=== PATIENT | male | born 1985 | race Caucasian/White ===

== ENCOUNTER 2016-07-05 10:11 | Inpatient (IN) | payer OTHER ==
[2016-07-05 12:06] VITALS: BMI 29.0
--- NOTE | 2016-07-05 12:22 | HP ---
COWS - Scale Resting Pulse: 0= [place] 80 or Below Sweatin=Flushed/Facial Moisture Restless Observation: 1= Difficult to Sit Still Pupil Size: 0= Normal to Room Light Bone or Joint Aches: 4=Acute Joint/Muscle Pain Runny Nose/ Eye Tearin= Runny Nose/Eyes GI Upset > 30mins: 0= None Tremor Observation: 2= Slight Tremor Visible Yawning Observation: 2= >3x During Session Anxiety or Irritability: 2=Irritable/Anxious Goose Flesh Skin: 3=Piloerection COWS Score: 18 CIWA Score - CIWA Score Nausea/Vomitin-No Nausea/No Vomiting Muscle Tremors: 4-Moderate,w/Arms Extend Anxiety: 4-Mod. Anxious/Guarded Agitation: 4-Moderately Restless Paroxysmal Sweats: 3 Orientation: 0-Oriented Tacttile Disturbances: 0-None Auditory Disturbances: 0-None Visual Disturbances: 0-None Headache: 0-None Present CIWA-Ar Total Score: 15 Admission ROS BHS - HPI Chief Complaint: I am here to detox. Allergies/Adverse Reactions: Allergies Allergy/AdvReac Type Severity Reaction Status Date / Time No Known Allergies Allergy Verified 07/05/16 11:49 History of Present Illness: pt is a 30yr old male with a history of opioid and xanax dependence seeking detox for treatment. Exam Limitations: No Limitations - Ebola screening Have you traveled outside of the country in the last 21 days: No Have you had contact with anyone from an Ebola affected area: No Have you been sick,other than usual withdrawal symptoms: No - Review of Systems Constitutional: Chills, Diaphoresis, Loss of Appetite, Night Sweats, Unintentional Wgt. Loss EENT: reports: Tearing Respiratory: reports: No Symptoms reported Cardiac: reports: No Symptoms Reported GI: reports: Poor Appetite, Poor Fluid Intake : reports: No Symptoms Reported Musculoskeletal: reports: Back Pain, Joint Pain, Muscle Pain Integumentary: reports: Flushing, Sweating Neuro: reports: Tingling, Tremors Endocrine: reports: Excessive Sweating, Flushing, Intolerance to Cold, Intolerance to Heat Hematology: reports: No Symptoms Reported Psychiatric: reports: Judgement Intact, Mood/Affect Appropiate, Orientated x3, Agitated, Anxious Other Systems: Reviewed and Negative Patient History - Patient Medical History Hx Anemia: No Hx Asthma: No Hx Chronic Obstructive Pulmonary Disease (COPD): No Hx Cancer: No Hx Cardiac Disorders: No Hx Congestive Heart Failure: No Hx Hypertension: No Hx Hypercholesterolemia: No Hx Pacemaker: No HX Cerebrovascular Accident: No Hx Seizures: No Hx Dementia: No Hx Diabetes: No Hx Gastrointestinal Disorders: No Hx Liver Disease: No Hx Genitourinary Disorders: No Hx Sexually Transmitted Disorders: No Hx Renal Disease (ESRD): No Hx Thyroid Disease: No Hx Human Immunodeficiency Virus (HIV): No (negative) Hx Hepatitis C: No (negative) Hx Depression: No Hx Suicide Attempt: No Hx Bipolar Disorder: No Hx Schizophrenia: No - Patient Surgical History Past Surgical History: Yes Hx Neurologic Surgery: No Hx Cataract Extraction: No Hx Cardiac Surgery: No Hx Lung Surgery: No Hx Breast Surgery: No Hx Breast Biopsy: No Hx Abdominal Surgery: No Hx Appendectomy: No Hx Cholecystectomy: No Hx Genitourinary Surgery: No Hx Orthopedic Surgery: Yes (LUMBAR SPINE SURGERY 06/2015 RELATED TO FALL) Anesthesia Reaction: No - PPD History Previous Implant?: Yes Documented Results: Negative w/proof Implanted On Prior R Admission?: Yes Date: 12/07/15 Results: 0 mm PPD to be Administered?: No - Reproductive History Patient is a Female of Child Bearing Age (11 -55 yrs old): No - Smoking Cessation Smoking history: Current some day smoker Have you smoked in the past 12 months: Yes Aproximately how many cigarettes per day: 4 Hx Chewing Tobacco Use: No Initiated information on smoking cessation: Yes 'Breaking Loose' booklet given: 07/05/16 - Substance & Tx. History Hx Alcohol Use: No Hx Substance Use: Yes Substance Use Type: Heroin, Tranquilizers Hx Substance Use Treatment: Yes - Substances Abused Heroin Route: Injection Frequency: Daily Amount used: 8 bags Age of first use: 29 Date of Last Use: 07/05/16 Xanax Route: Oral Frequency: Daily Amount used: 8 mg. Age of first use: 28 Date of Last Use: 07/05/16 Family Disease History - Family Disease History Family History: Denies Admission Physical Exam BHS - Vital Signs Vital Signs: Vital Signs - 24 hr 07/05/16 11:51 Temperature 97.1 F L Pulse Rate 69 Respiratory 20 Rate Blood Pressure 122/69 - Physical General Appearance: Yes: Appropriately Dressed, Moderate Distress, Irritable, Sweating, Anxious HEENTM: Yes: Normal Voice Respiratory: Yes: Lungs Clear, Normal Breath Sounds, No Respiratory Distress Neck: Yes: No masses,lesions,Nodules Breast: Yes: Within Normal Limits Cardiology: Yes: Regular Rhythm, Regular Rate, S1, S2 Abdominal: Yes: Normal Bowel Sounds, Non Tender, Soft Genitourinary: Yes: Within Normal Limits Back: Yes: Normal Inspection Musculoskeletal: Yes: full range of Motion, Back pain, Joint Stiffness Extremities: Yes: Normal Capillary Refill, Non-Tender, Tremors Neurological: Yes: Fully Oriented, Alert, Normal Response Integumentary: Yes: Normal Color, Diaphoresis, Track [place]hu[place] Lymphatic: Yes: Within Normal Limits - Diagnostic (1) Lumbago due to displacement of intervertebral disc Current Visit: Yes Status: Chronic (2) Nicotine dependence Current Visit: Yes Status: Chronic Qualifiers: Nicotine product type: cigarettes Substance use status: uncomplicated Qualified Code(s): F17.210 - Nicotine dependence, cigarettes, uncomplicated (3) Opioid dependence with withdrawal Current Visit: Yes Status: Chronic (4) Sedative, hypnotic or anxiolytic dependence with withdrawal, uncomplicated Current Visit: Yes Status: Chronic Cleared for Admission [facility] - Detox or Rehab [facility] Level of Care: Medically Managed Detox Regimen/Protocol: Methadone/Valium [facility] Breath Alcohol Content Breath Alcohol Content: 0 Urine Drug Screen - Results Drug Screen Negative: No Urine Drug Screen Results: OPI-Opiates, BZO-Benzodiazepines, OXY-Oxycodone
[2016-07-05] MEDS ORDERED: P-EPHED 60MG/TRIPROLIDI 2.5MG TABLET PO PRN (12:23)
[2016-07-05] MEDS ORDERED: diphenhydrAMINE HCL 50 MG CAPSULE PO PRN (12:23)
[2016-07-05] MEDS ORDERED: MENTHOL/PHENOL 1 EACH UD MM PRN (12:23)
[2016-07-05] MEDS ORDERED: guaiFENesin/D-METHORPHAN HB 10 ML UNIT-DOSE CUPS PO PRN (12:23)
[2016-07-05] MEDS ORDERED: MAGNESIUM HYDROX 2400MG/30ML ORAL SUSPENSION 30 ML CUP PO PRN (12:23)
[2016-07-05] MEDS ORDERED: MAG HYDROX/AL HYDROX/SIMETH 30 ML UNIT-DOSE CUP PO PRN (12:23)
[2016-07-05] MEDS ORDERED: ACETAMINOPHEN 325 MG TABLET (FP) PO PRN (12:23)
[2016-07-05] MEDS ORDERED: hydrOXYzine PAMOATE 50 MG CAPSULE (FP) PO PRN (12:23)
[2016-07-05] MEDS ORDERED: MAGNESIUM CITRATE 300 ML BOTTLE PO PRN (12:23)
[2016-07-05] MEDS ORDERED: LOPERAMIDE HCL 2 MG CAPSULE PO PRN (12:23)
[2016-07-05] MEDS ORDERED: diazePAM 5 MG TABLET PO ONE (13:02)
[2016-07-05] MEDS ORDERED: METHADONE HCL 10 MG TABLET (FOR DETOX USE ONLY) PO ONE ×2 (13:03→23:00)
[2016-07-05] MEDS: diazePAM 5 MG TABLET PO SCH ×2 (13:59→22:17)
[2016-07-05 17:58] LABS: URINE APPEARANCE CLEAR; URINE BILIRUBIN NEGATIVE (NEGATIVE); URINE BLOOD NEGATIVE (NEGATIVE); URINE COLOR LTYELLOW; URINE GLUCOSE (UA) NEGATIVE (NEGATIVE); URINE KETONE NEGATIVE (NEGATIVE); URINE LEUK ESTERASE NEGATIVE (NEGATIVE); URINE NITRITE NEGATIVE (NEGATIVE); URINE PROTEIN NEGATIVE (NEGATIVE); URINE UROBILINOGEN NEGATIVE E.U./dl (0.2-1.0)
[2016-07-05] MEDS: VITAMINS A AND D TOPICAL OINTMENT 60 GM TUBE TP SCH (18:00)
[2016-07-05] MEDS: diazePAM 5 MG TABLET PO PRN (18:45)
[2016-07-05] MEDS: THIAMINE HCL 100 MG TABLET (FP) PO SCH (22:17)
[2016-07-06] MEDS: VITAMINS A AND D TOPICAL OINTMENT 60 GM TUBE TP SCH ×4 (01:11→18:00)
[2016-07-06] MEDS: diazePAM 5 MG TABLET PO PRN ×4 (02:16→18:49)
[2016-07-06] MEDS: diazePAM 5 MG TABLET PO SCH ×3 (07:39→22:24)
--- NOTE | 2016-07-06 08:26 | EKG ---
Test Reason : Blood Pressure : / mmHG Vent. Rate : 074 BPM Atrial Rate : 074 BPM P-R Int : 144 ms QRS Dur : 100 ms QT Int : 378 ms P-R-T Axes : 034 085 045 degrees QTc Int : 419 ms NORMAL SINUS RHYTHM NORMAL ECG NO PREVIOUS ECGS AVAILABLE Confirmed by TERRI MCCALL MD ([id number]) on 07/06/2016 8:25:46 AM Referred By: Confirmed By:TERRI MCCALL MD
[2016-07-06] MEDS ORDERED: METHADONE HCL 10 MG TABLET (FOR DETOX USE ONLY) PO SCH (10:00)
[2016-07-06] MEDS: PRENATAL VITAMINS W/ FOLIC ACID TABLET (FP) PO SCH (10:13)
[2016-07-06 10:31] LABS: ALBUMIN 4.1 g/dl (3.4-5.0); ALK PHOS 130 U/L (45-117); ANION GAP 8 (8-16); BILIRUBIN,TOTAL 0.4 mg/dL (0.2-1.0); CALCIUM 9.3 mg/dL (8.5-10.1); CO2 28 mmol/L (21-32); COCKROFT - GAULT 155.92; CREATININE 0.8 mg/dL (0.7-1.3); GLUCOSE,RANDOM 163 mg/dL (74-106); SGOT/AST 31 U/L (15-37); SGPT/ALT 49 U/L (12-78); TOT PROT 7.5 g/dl (6.4-8.2)
[2016-07-06 10:57] LABS: MCH 27.4 pg (25.7-33.7); MCHC 32.7 g/dl (32.0-35.9); MEAN CELL VOLUME 83.7 fl (80-96); MEAN PLT VOLUME 10.3 fl (7.5-11.1); PLATELET COUNT 232 K/MM3 (134-434); RDW 14.6 % (11.9-15.9); WHITE BLOOD COUNT 6.9 K/mm3 (4.0-10.0)
--- NOTE | 2016-07-06 11:04 | PN ---
[facility] CIWA - CIWA Score Nausea/Vomitin-No Nausea/No Vomiting Muscle Tremors: 4-Moderate,w/Arms Extend Anxiety: 4-Mod. Anxious/Guarded Agitation: 4-Moderately Restless Paroxysmal Sweats: 1-Minimal Palms Moist Orientation: 0-Oriented Tacttile Disturbances: 3-Moderate Itch/Numb/Burn Auditory Disturbances: 0-None Visual Disturbances: 0-None Headache: 0-None Present CIWA-Ar Total Score: 16 BHS COWS - Scale Resting Pulse: 1= [place] 81-100 Sweatin= Chills/Flushing Restless Observation: 3= Extraneous Movement Pupil Size: 2= Moderately Dilated Bone or Joint Aches: 4=Acute Joint/Muscle Pain Runny Nose/ Eye Tearin= Nasal Congestion GI Upset > 30mins: 1= Stomach Cramp Tremor Observation of Outstretched Hands: 1= Tremor [place], Not Seen Yawning Observation: 1= 1-2x During Session Anxiety or Irritability: 2=Irritable/Anxious Goose Flesh Skin: 0=Smooth Skin COWS Score: 17 [facility] Progress Note (SOAP) Subjective: ANXIETY,TREMORS, SWEATS, MUSCLE SPASMS, INTERMITTENT SLEEP. Objective: 07/06/16 11:03 Vital Signs Temperature 96.9 F L 07/06/16 10:02 Pulse Rate 84 07/06/16 10:02 Respiratory Rate 18 07/06/16 10:02 Blood Pressure 121/20 07/06/16 10:02 O2 Sat by Pulse Oximetry (%) Laboratory Last Values Sodium 138 mmol/L (136-145) 07/06/16 06:00 Potassium 4.9 mmol/L (3.5-5.1) 07/06/16 06:00 Chloride 102 mmol/L (98-107) 07/06/16 06:00 Carbon Dioxide 28 mmol/L (21-32) 07/06/16 06:00 Anion Gap 8 (8-16) 07/06/16 06:00 BUN 14 mg/dL (7-18) 07/06/16 06:00 Creatinine 0.8 mg/dL (0.7-1.3) 07/06/16 06:00 Creat Clearance w eGFR > 60 (>60) 07/06/16 06:00 Random Glucose 163 mg/dL (74-106) H D 07/06/16 06:00 Calcium 9.3 mg/dL (8.5-10.1) 07/06/16 06:00 Total Bilirubin 0.4 mg/dL (0.2-1.0) D 07/06/16 06:00 AST 31 U/L (15-37) D 07/06/16 06:00 ALT 49 U/L (12-78) D 07/06/16 06:00 Alkaline Phosphatase 130 U/L (45-117) H 07/06/16 06:00 Total Protein 7.5 g/dl (6.4-8.2) 07/06/16 06:00 Albumin 4.1 g/dl (3.4-5.0) 07/06/16 06:00 Urine Color Ltyellow 07/05/16 13:00 Urine Appearance Clear 07/05/16 13:00 Urine pH 6.0 (5.0-8.0) 07/05/16 13:00 Ur Specific [place] 1.023 (1.001-1.035) 07/05/16 13:00 Urine Protein Negative (NEGATIVE) 07/05/16 13:00 Urine Glucose (UA) Negative (NEGATIVE) 07/05/16 13:00 Urine Ketones Negative (NEGATIVE) 07/05/16 13:00 Urine Blood Negative (NEGATIVE) 07/05/16 13:00 Urine Nitrite Negative (NEGATIVE) 07/05/16 13:00 Urine Bilirubin Negative (NEGATIVE) 07/05/16 13:00 Urine Urobilinogen Negative E.U./dl (0.2-1.0) 07/05/16 13:00 Ur Leukocyte Esterase Negative (NEGATIVE) 07/05/16 13:00 Assessment: 07/06/16 11:03 WITHDRAWAL SX Plan: CONTINUE DETOX
[2016-07-06] MEDS: IBUPROFEN 400 MG TABLET (FP) PO PRN ×2 (13:05→20:20)
[2016-07-06] MEDS ORDERED: ONDANSETRON *ODT* 4 MG TABLET SL PRN (13:08)
[2016-07-06] MEDS ORDERED: hydrOXYzine PAMOATE 50 MG CAPSULE (FP) PO PRN (13:09)
[2016-07-06] MEDS: CYCLOBENZAPRINE HCL 10 MG TABLET (FP) PO SCH ×2 (14:14→22:24)
[2016-07-06] MEDS: THIAMINE HCL 100 MG TABLET (FP) PO SCH (22:24)
[2016-07-06] MEDS: hydrOXYzine PAMOATE 50 MG CAPSULE (FP) PO PRN (22:26)
[2016-07-07] MEDS: VITAMINS A AND D TOPICAL OINTMENT 60 GM TUBE TP SCH ×4 (00:25→17:52)
[2016-07-07] MEDS: diazePAM 5 MG TABLET PO PRN ×3 (00:32→18:35)
[2016-07-07] MEDS: CYCLOBENZAPRINE HCL 10 MG TABLET (FP) PO SCH ×3 (05:59→22:36)
[2016-07-07] MEDS: diazePAM 5 MG TABLET PO SCH ×2 (10:19→22:35)
[2016-07-07] MEDS: PRENATAL VITAMINS W/ FOLIC ACID TABLET (FP) PO SCH (10:19)
[2016-07-07] MEDS: METHADONE HCL 5 MG TABLET (FOR DETOX USE ONLY) PO SCH (10:19)
[2016-07-07] MEDS: IBUPROFEN 400 MG TABLET (FP) PO PRN (10:20)
--- NOTE | 2016-07-07 11:17 | CONSULT ---
[facility] Psychiatric Consult - Data Date of interview: 07/07/16 Admission source: [facility] Identifying data: This is 30 years old male with no psychiatric hospitalization history intoxicated with: Xanax, Opioids and Nicotine Substance Abuse History: - Smoking Cessation. Smoking history: Current some day smoker. Have you smoked in the past 12 months: Yes. Aproximately how many cigarettes per day: 4. Hx Chewing Tobacco Use: No. Initiated information on smoking cessation: Yes. 'Breaking Loose' booklet given: 07/05/16. - Substance & Tx. History. Hx Alcohol Use: No. Hx Substance Use: Yes. Substance Use Type : Heroin, Tranquilizers. Hx Substance Use Treatment: Yes. - Substances Abused. Heroin. Route: Injection. Frequency: Daily. Amount used: 8 bags. Age of first use: 29. Date of Last Use: 07/05/16. Xanax. Route: Oral. Frequency: Daily. Amount used: 8 mg. Age of first use: 28. Date of Last Use: 07/05/16 Medical History: Denies Psychiatric History: Patient denies past psychiatric history, reports insomnia and asking for medications Physical/Sexual Abuse/Trauma History: Denies Additional Comment: Seroquel 100mg po qhs Mental Status Exam - Mental Status Exam Alert and Oriented to: Person Cognitive Function: Fair Patient Appearance: Unkempt Mood: Anxious Affect: Labile Patient Behavior: Cooperative Speech Pattern: Appropriate Voice Loudness: Normal Thought Process: Goal Oriented Thought Disorder: Being Controlled Hallucinations: Denies Suicidal Ideation: Denies Homicidal Ideation: Denies Insight/Judgement: Fair Sleep: Difficulty falling asleep Appetite: Weight loss Muscle strength/Tone: Normal Gait/Station: Normal Additional Comments: Seroquel 100mg po qhs Psychiatric Findings - Problem List ([place] 1, 2,3) (1) Nicotine dependence Current Visit: Yes Status: Chronic Qualifiers: Nicotine product type: cigarettes Substance use status: uncomplicated Qualified Code(s): F17.210 - Nicotine dependence, cigarettes, uncomplicated (2) Opioid dependence with withdrawal Current Visit: Yes Status: Chronic (3) Sedative, hypnotic or anxiolytic dependence with withdrawal, uncomplicated Current Visit: Yes Status: Chronic (4) Opioid-induced sleep disorder, insomnia type, with onset during discontinuation/withdrawal Current Visit: Yes Status: Acute - Initial Treatment Plan Initial Treatment Plan: Seroquel 100mg po qhs
--- NOTE | 2016-07-07 12:08 | PN ---
S CIWA - CIWA Score Nausea/Vomitin-No Nausea/No Vomiting Muscle Tremors: 4-Moderate,w/Arms Extend Anxiety: 4-Mod. Anxious/Guarded Agitation: 3 Paroxysmal Sweats: 1-Minimal Palms Moist Orientation: 0-Oriented Tacttile Disturbances: 3-Moderate Itch/Numb/Burn Auditory Disturbances: 0-None Visual Disturbances: 0-None Headache: 0-None Present CIWA-Ar Total Score: 15 BHS COWS - Scale Resting Pulse: 0= [place] 80 or Below Sweatin= Chills/Flushing Restless Observation: 3= Extraneous Movement Pupil Size: 2= Moderately Dilated Bone or Joint Aches: 4=Acute Joint/Muscle Pain Runny Nose/ Eye Tearin= Nasal Congestion GI Upset > 30mins: 1= Stomach Cramp Tremor Observation of Outstretched Hands: 1= Tremor [place], Not Seen Yawning Observation: 1= 1-2x During Session Anxiety or Irritability: 2=Irritable/Anxious Goose Flesh Skin: 0=Smooth Skin COWS Score: 16 S Progress Note (SOAP) Subjective: ANXIETY,SWEATS,DECREASED NAUSEA., INTERMITTENT SLEEP. [place] NOT EFFECTIVE. Objective: 07/07/16 12:08 Vital Signs Temperature 96.9 F L 07/07/16 09:23 Pulse Rate 77 07/07/16 09:23 Respiratory Rate 18 07/07/16 09:23 Blood Pressure 105/74 07/07/16 09:23 O2 Sat by Pulse Oximetry (%) Laboratory Last Values WBC 6.9 K/mm3 (4.0-10.0) 07/06/16 06:00 RBC 4.98 M/mm3 (4.00-5.60) 07/06/16 06:00 Hgb 13.6 GM/dL (11.7-16.9) 07/06/16 06:00 Hct 41.7 % (35.4-49) 07/06/16 06:00 MCV 83.7 fl (80-96) 07/06/16 06:00 MCHC 32.7 g/dl (32.0-35.9) 07/06/16 06:00 RDW 14.6 % (11.9-15.9) 07/06/16 06:00 Plt Count 232 K/MM3 (134-434) 07/06/16 06:00 MPV 10.3 fl (7.5-11.1) D 07/06/16 06:00 Sodium 138 mmol/L (136-145) 07/06/16 06:00 Potassium 4.9 mmol/L (3.5-5.1) 07/06/16 06:00 Chloride 102 mmol/L (98-107) 07/06/16 06:00 Carbon Dioxide 28 mmol/L (21-32) 07/06/16 06:00 Anion Gap 8 (8-16) 07/06/16 06:00 BUN 14 mg/dL (7-18) 07/06/16 06:00 Creatinine 0.8 mg/dL (0.7-1.3) 07/06/16 06:00 Creat Clearance w eGFR > 60 (>60) 07/06/16 06:00 Random Glucose 163 mg/dL (74-106) H D 07/06/16 06:00 Calcium 9.3 mg/dL (8.5-10.1) 07/06/16 06:00 Total Bilirubin 0.4 mg/dL (0.2-1.0) D 07/06/16 06:00 AST 31 U/L (15-37) D 07/06/16 06:00 ALT 49 U/L (12-78) D 07/06/16 06:00 Alkaline Phosphatase 130 U/L (45-117) H 07/06/16 06:00 Total Protein 7.5 g/dl (6.4-8.2) 07/06/16 06:00 Albumin 4.1 g/dl (3.4-5.0) 07/06/16 06:00 Urine Color Ltyellow 07/05/16 13:00 Urine Appearance Clear 07/05/16 13:00 Urine pH 6.0 (5.0-8.0) 07/05/16 13:00 Ur Specific [place] 1.023 (1.001-1.035) 07/05/16 13:00 Urine Protein Negative (NEGATIVE) 07/05/16 13:00 Urine Glucose (UA) Negative (NEGATIVE) 07/05/16 13:00 Urine Ketones Negative (NEGATIVE) 07/05/16 13:00 Urine Blood Negative (NEGATIVE) 07/05/16 13:00 Urine Nitrite Negative (NEGATIVE) 07/05/16 13:00 Urine Bilirubin Negative (NEGATIVE) 07/05/16 13:00 Urine Urobilinogen Negative E.U./dl (0.2-1.0) 07/05/16 13:00 Ur Leukocyte Esterase Negative (NEGATIVE) 07/05/16 13:00 RPR Titer Nonreactive (NONREACTIVE) 07/06/16 06:00 ELEVATED BLOOD GLUCOSE AND ALKALINE PHOS DENIES ALL PMHx PT HX CHRONIC USER OF PAIN MEDICATIONS PER MED RECORDS. Assessment: 07/07/16 12:10 WITHDRAWAL SX Plan: CONTINUE DETOX REPEAT ALK PHOS BGM MONITORING X3 DAYS
[2016-07-07] MEDS: THIAMINE HCL 100 MG TABLET (FP) PO SCH (22:35)
[2016-07-07] MEDS: QUEtiapine FUMARATE 100 MG TABLET (FP) PO SCH (22:36)
[2016-07-07] MEDS: hydrOXYzine PAMOATE 50 MG CAPSULE (FP) PO PRN (22:37)
[2016-07-08] MEDS: IBUPROFEN 400 MG TABLET (FP) PO PRN (00:03)
[2016-07-08] MEDS: diazePAM 5 MG TABLET PO PRN ×2 (01:35→05:10)
[2016-07-08] MEDS: VITAMINS A AND D TOPICAL OINTMENT 60 GM TUBE TP SCH ×5 (03:55→23:13)
[2016-07-08] MEDS: CYCLOBENZAPRINE HCL 10 MG TABLET (FP) PO SCH ×3 (05:10→22:14)
[2016-07-08] MEDS: METHADONE HCL 5 MG TABLET (FOR DETOX USE ONLY) PO SCH (10:40)
[2016-07-08] MEDS: PRENATAL VITAMINS W/ FOLIC ACID TABLET (FP) PO SCH (10:40)
[2016-07-08] MEDS: diazePAM 5 MG TABLET PO SCH ×2 (10:40→22:14)
--- NOTE | 2016-07-08 12:38 | PN ---
BHS Progress Note (SOAP) Subjective: Sweating,interrupted sleep,restless Objective: 07/08/16 12:37 Vital Signs - 8 hr 07/08/16 07/08/16 07/08/16 06:30 06:38 09:28 Temperature 96.8 F L 96.2 F L Pulse Rate 64 77 Respiratory 18 16 18 Rate Blood Pressure 100/67 106/68 Laboratory Tests 07/05/16 07/06/16 07/06/16 13:00 06:00 06:00 WBC 6.9 RBC 4.98 Hgb 13.6 Hct 41.7 MCV 83.7 MCHC 32.7 RDW 14.6 Plt Count 232 MPV 10.3 D Sodium 138 Potassium 4.9 Chloride 102 Carbon Dioxide 28 Anion Gap 8 BUN 14 Creatinine 0.8 Creat Clearance w eGFR > 60 POC Glucometer Random Glucose 163 H D Calcium 9.3 Total Bilirubin 0.4 D AST 31 D ALT 49 D Alkaline Phosphatase 130 H Total Protein 7.5 Albumin 4.1 Urine Color Ltyellow Urine Appearance Clear Urine pH 6.0 Ur Specific [place] 1.023 Urine Protein Negative Urine Glucose (UA) Negative Urine Ketones Negative Urine Blood Negative Urine Nitrite Negative Urine Bilirubin Negative Urine Urobilinogen Negative Ur Leukocyte Esterase Negative RPR Titer 07/06/16 07/07/16 07/08/16 06:00 07:00 05:57 WBC RBC Hgb Hct MCV MCHC RDW Plt Count MPV Sodium Potassium Chloride Carbon Dioxide Anion Gap BUN Creatinine Creat Clearance w eGFR POC Glucometer 87 Random Glucose Calcium Total Bilirubin AST ALT Alkaline Phosphatase 118 H Total Protein Albumin Urine Color Urine Appearance Urine pH Ur Specific [place] Urine Protein Urine Glucose (UA) Urine Ketones Urine Blood Urine Nitrite Urine Bilirubin Urine Urobilinogen Ur Leukocyte Esterase RPR Titer Nonreactive labs noted Assessment: 07/08/16 12:38 Withdrawal sx. Plan: Continue detox
[2016-07-08] MEDS: QUEtiapine FUMARATE 100 MG TABLET (FP) PO SCH (22:14)
[2016-07-08] MEDS: THIAMINE HCL 100 MG TABLET (FP) PO SCH (22:14)
[2016-07-09] MEDS: CYCLOBENZAPRINE HCL 10 MG TABLET (FP) PO SCH ×3 (05:12→22:17)
[2016-07-09] MEDS: VITAMINS A AND D TOPICAL OINTMENT 60 GM TUBE TP SCH ×4 (05:13→23:53)
[2016-07-09] MEDS ORDERED: diazePAM 5 MG TABLET PO SCH (10:00)
[2016-07-09] MEDS ORDERED: METHADONE HCL 10 MG TABLET (FOR DETOX USE ONLY) PO SCH (10:00)
[2016-07-09] MEDS: PRENATAL VITAMINS W/ FOLIC ACID TABLET (FP) PO SCH (10:22)
--- NOTE | 2016-07-09 15:49 | PN ---
BHS Progress Note (SOAP) Subjective: Interrupted sleep, Body Aches, H/A, Stomach Ache, Sweating. Objective: PT. A & O X 3. 07/09/16 15:47 Vital Signs Temperature 96.4 F L 07/09/16 13:45 Pulse Rate 80 07/09/16 13:45 Respiratory Rate 20 07/09/16 13:45 Blood Pressure 104/69 07/09/16 13:45 O2 Sat by Pulse Oximetry (%) Laboratory Last Values WBC 6.9 K/mm3 (4.0-10.0) 07/06/16 06:00 RBC 4.98 M/mm3 (4.00-5.60) 07/06/16 06:00 Hgb 13.6 GM/dL (11.7-16.9) 07/06/16 06:00 Hct 41.7 % (35.4-49) 07/06/16 06:00 MCV 83.7 fl (80-96) 07/06/16 06:00 MCHC 32.7 g/dl (32.0-35.9) 07/06/16 06:00 RDW 14.6 % (11.9-15.9) 07/06/16 06:00 Plt Count 232 K/MM3 (134-434) 07/06/16 06:00 MPV 10.3 fl (7.5-11.1) D 07/06/16 06:00 Sodium 138 mmol/L (136-145) 07/06/16 06:00 Potassium 4.9 mmol/L (3.5-5.1) 07/06/16 06:00 Chloride 102 mmol/L (98-107) 07/06/16 06:00 Carbon Dioxide 28 mmol/L (21-32) 07/06/16 06:00 Anion Gap 8 (8-16) 07/06/16 06:00 BUN 14 mg/dL (7-18) 07/06/16 06:00 Creatinine 0.8 mg/dL (0.7-1.3) 07/06/16 06:00 Creat Clearance w eGFR > 60 (>60) 07/06/16 06:00 POC Glucometer 89 UNITS (()) 07/09/16 05:15 Random Glucose 163 mg/dL (74-106) H D 07/06/16 06:00 Calcium 9.3 mg/dL (8.5-10.1) 07/06/16 06:00 Total Bilirubin 0.4 mg/dL (0.2-1.0) D 07/06/16 06:00 AST 31 U/L (15-37) D 07/06/16 06:00 ALT 49 U/L (12-78) D 07/06/16 06:00 Alkaline Phosphatase 118 U/L (45-117) H 07/07/16 07:00 Total Protein 7.5 g/dl (6.4-8.2) 07/06/16 06:00 Albumin 4.1 g/dl (3.4-5.0) 07/06/16 06:00 Urine Color Ltyellow 07/05/16 13:00 Urine Appearance Clear 07/05/16 13:00 Urine pH 6.0 (5.0-8.0) 07/05/16 13:00 Ur Specific [place] 1.023 (1.001-1.035) 07/05/16 13:00 Urine Protein Negative (NEGATIVE) 07/05/16 13:00 Urine Glucose (UA) Negative (NEGATIVE) 07/05/16 13:00 Urine Ketones Negative (NEGATIVE) 07/05/16 13:00 Urine Blood Negative (NEGATIVE) 07/05/16 13:00 Urine Nitrite Negative (NEGATIVE) 07/05/16 13:00 Urine Bilirubin Negative (NEGATIVE) 07/05/16 13:00 Urine Urobilinogen Negative E.U./dl (0.2-1.0) 07/05/16 13:00 Ur Leukocyte Esterase Negative (NEGATIVE) 07/05/16 13:00 RPR Titer Nonreactive (NONREACTIVE) 07/06/16 06:00 LABS NOTED. 07/09/16 15:48 Assessment: 07/09/16 15:48 WITHDRAWAL SYMPTOMS. Plan: CONTINUE DETOX. ADVISED PATIENT TO FOLLOW-UP WITH [facility] REHAB MEDICAL PROVIDER AFTER DISCHARGE FROM DETOX FOR GENERAL MEDICAL ASSESSMENT AND FOR ABNORMAL ADMISSION LAB VALUES.
[2016-07-09] MEDS: IBUPROFEN 400 MG TABLET (FP) PO PRN (17:17)
[2016-07-09] MEDS: THIAMINE HCL 100 MG TABLET (FP) PO SCH (22:17)
[2016-07-09] MEDS: QUEtiapine FUMARATE 100 MG TABLET (FP) PO SCH (22:17)
[2016-07-09] MEDS: hydrOXYzine PAMOATE 50 MG CAPSULE (FP) PO PRN (23:55)
[2016-07-10] MEDS: CYCLOBENZAPRINE HCL 10 MG TABLET (FP) PO SCH (05:18)
[2016-07-10] MEDS ORDERED: METHADONE HCL 5 MG TABLET (FOR DETOX USE ONLY) PO SCH (06:00)
[2016-07-10] MEDS: VITAMINS A AND D TOPICAL OINTMENT 60 GM TUBE TP SCH (06:04)
[2016-07-10 10:06] VITALS: BP 116/72; PULSE 75; TEMP 95.9
--- NOTE | 2016-07-10 12:04 | DS ---
[facility] Detox Discharge Summary Admission Date: 07/05/16 Discharge Date: 07/10/16 - History Present History: Opioid Dependence, Sedative Dependence - Physical Exam Results Vital Signs: Vital Signs Temperature 95.9 F L 07/10/16 10:05 Pulse Rate 75 07/10/16 10:05 Respiratory Rate 18 07/10/16 10:05 Blood Pressure 116/72 07/10/16 10:05 O2 Sat by Pulse Oximetry (%) Pertinent Admission Physical Exam Findings: Withdrawal symptoms Laboratory Tests 07/05/16 07/06/16 07/06/16 13:00 06:00 06:00 WBC 6.9 RBC 4.98 Hgb 13.6 Hct 41.7 MCV 83.7 MCHC 32.7 RDW 14.6 Plt Count 232 MPV 10.3 D Sodium 138 Potassium 4.9 Chloride 102 Carbon Dioxide 28 Anion Gap 8 BUN 14 Creatinine 0.8 Creat Clearance w eGFR > 60 POC Glucometer Random Glucose 163 H D Calcium 9.3 Total Bilirubin 0.4 D AST 31 D ALT 49 D Alkaline Phosphatase 130 H Total Protein 7.5 Albumin 4.1 Urine Color Ltyellow Urine Appearance Clear Urine pH 6.0 Ur Specific [place] 1.023 Urine Protein Negative Urine Glucose (UA) Negative Urine Ketones Negative Urine Blood Negative Urine Nitrite Negative Urine Bilirubin Negative Urine Urobilinogen Negative Ur Leukocyte Esterase Negative RPR Titer 07/06/16 07/07/16 07/08/16 06:00 07:00 05:57 WBC RBC Hgb Hct MCV MCHC RDW Plt Count MPV Sodium Potassium Chloride Carbon Dioxide Anion Gap BUN Creatinine Creat Clearance w eGFR POC Glucometer 87 Random Glucose Calcium Total Bilirubin AST ALT Alkaline Phosphatase 118 H Total Protein Albumin Urine Color Urine Appearance Urine pH Ur Specific [place] Urine Protein Urine Glucose (UA) Urine Ketones Urine Blood Urine Nitrite Urine Bilirubin Urine Urobilinogen Ur Leukocyte Esterase RPR Titer Nonreactive 07/09/16 05:15 WBC RBC Hgb Hct MCV MCHC RDW Plt Count MPV Sodium Potassium Chloride Carbon Dioxide Anion Gap BUN Creatinine Creat Clearance w eGFR POC Glucometer 89 Random Glucose Calcium Total Bilirubin AST ALT Alkaline Phosphatase Total Protein Albumin Urine Color Urine Appearance Urine pH Ur Specific [place] Urine Protein Urine Glucose (UA) Urine Ketones Urine Blood Urine Nitrite Urine Bilirubin Urine Urobilinogen Ur Leukocyte Esterase RPR Titer Labs noted - Treatment Hospital Course: Detox Protocol Followed, Detoxed Safely, Responded well, Discharged Condition Good - Medication Discharge Medications: Ambulatory Orders Quetiapine Fumarate [Seroquel] 100 mg PO HS #30 tablet 07/07/16 - Diagnosis (1) Nicotine dependence Status: Chronic Qualifiers: Nicotine product type: cigarettes Substance use status: uncomplicated Qualified Code(s): F17.210 - Nicotine dependence, cigarettes, uncomplicated (2) Opioid dependence with withdrawal Status: Acute (3) Sedative, hypnotic or anxiolytic dependence with withdrawal, uncomplicated Status: Acute - AMA Did Patient Leave Against Medical Advice: No
== END 2016-07-10 08:39 | disposition home or self-care (01) | DRG 773 ==
LOC: YASAS 10:11 → Y3N 12:43
PROVIDERS: ADMIT Internal Medicine; ATTEND Internal Medicine
PROC: HZ2ZZZZ Detoxification Services for Substance Abuse Treatment (ICD-10-PCS; principal; 2016-07-10)
DX: F11.23 Opioid dependence with withdrawal (principal); F13.230 Sedative, hypnotic or anxiolytic dependence with withdrawal, uncomplicated; F17.210 Nicotine dependence, cigarettes, uncomplicated; F19.282 Other psychoactive substance dependence with psychoactive substance-induced sleep disorder; G47.00 Insomnia, unspecified; M51.26 Other intervertebral disc displacement, lumbar region
CPT/HCPCS: 36415; 80053; 81003; 84075; 85027; 86593; 93005; 93010

== ENCOUNTER 2016-08-15 14:28 | Inpatient (IN) | payer OTHER ==
[2016-08-15 17:41] VITALS: BMI 27.3
--- NOTE | 2016-08-15 20:14 | HP ---
COWS - Scale Resting Pulse: 0= [place] 80 or Below Sweatin= Chills/Flushing Restless Observation: 3= Extraneous Movement Pupil Size: 0= Normal to Room Light Bone or Joint Aches: 2= Severe Diffuse Aches Runny Nose/ Eye Tearin= Runny Nose/Eyes GI Upset > 30mins: 2= Nausea/Diarrhea Tremor Observation: 2= Slight Tremor Visible Yawning Observation: 0= None Anxiety or Irritability: 2=Irritable/Anxious Goose Flesh Skin: 0=Smooth Skin COWS Score: 14 CIWA Score - CIWA Score Nausea/Vomitin-Mild Nausea/No Vomiting Muscle Tremors: 4-Moderate,w/Arms Extend Anxiety: 4-Mod. Anxious/Guarded Agitation: 4-Moderately Restless Paroxysmal Sweats: 1-Minimal Palms Moist Orientation: 0-Oriented Tacttile Disturbances: 0-None Auditory Disturbances: 0-None Visual Disturbances: 0-None Headache: 0-None Present CIWA-Ar Total Score: 14 Admission ROS S - HPI Chief Complaint: WITHDRAWAL SX Allergies/Adverse Reactions: Allergies Allergy/AdvReac Type Severity Reaction Status Date / Time No Known Allergies Allergy Verified 07/05/16 11:49 History of Present Illness: 31 YEARS OLD MALE WITH LONG HISTORY OF OPIOID XANAX NICOTINE DEPENDENCE DENIES MEDICAL ISSUE HAS DEPRESSION IS ADMITTED TO DETOX Exam Limitations: No Limitations - Ebola screening Have you traveled outside of the country in the last 21 days: No Have you had contact with anyone from an Ebola affected area: No Have you been sick,other than usual withdrawal symptoms: No Do you have a fever: No - Review of Systems Constitutional: Chills, Changes in sleep, Weight Stable EENT: reports: No Symptoms Reported Respiratory: reports: No Symptoms reported Cardiac: reports: No Symptoms Reported GI: reports: Nausea, Poor Fluid Intake, Abdominal cramping : reports: No Symptoms Reported Musculoskeletal: reports: Back Pain, Joint Pain, Muscle Pain, Neck Pain Integumentary: reports: Change in Color (RIGHT INNER ELBOW IV OPIOID) Neuro: reports: Tremors Endocrine: reports: No Symptoms Reported Hematology: reports: No Symptoms Reported Psychiatric: reports: Judgement Intact, Orientated x3, Depressed Other Systems: Reviewed and Negative Patient History - Patient Medical History Hx Anemia: No Hx Asthma: No Hx Chronic Obstructive Pulmonary Disease (COPD): No Hx Cancer: No Hx Cardiac Disorders: No Hx Congestive Heart Failure: No Hx Hypertension: No Hx Hypercholesterolemia: No Hx Pacemaker: No HX Cerebrovascular Accident: No Hx Seizures: No Hx Dementia: No Hx Diabetes: No Hx Gastrointestinal Disorders: No Hx Liver Disease: No Hx Genitourinary Disorders: No Hx Sexually Transmitted Disorders: No Hx Renal Disease (ESRD): No Hx Thyroid Disease: No Hx Human Immunodeficiency Virus (HIV): No (negative) Hx Hepatitis C: No (negative) Hx Depression: Yes Hx Suicide Attempt: No Hx Bipolar Disorder: No Hx Schizophrenia: No - Patient Surgical History Past Surgical History: Yes Hx Neurologic Surgery: No Hx Cataract Extraction: No Hx Cardiac Surgery: No Hx Lung Surgery: No Hx Breast Surgery: No Hx Breast Biopsy: No Hx Abdominal Surgery: No Hx Appendectomy: No Hx Cholecystectomy: No Hx Genitourinary Surgery: No Hx Orthopedic Surgery: Yes (LUMBAR SPINE SURGERY 06/2015 RELATED TO FALL) Anesthesia Reaction: No - PPD History Previous Implant?: Yes Documented Results: Negative w/o proof Implanted On Prior R Admission?: Yes Date: 12/07/15 Results: 0 mm PPD to be Administered?: No - Smoking Cessation Smoking history: Current some day smoker Have you smoked in the past 12 months: Yes Aproximately how many cigarettes per day: 4 Cigars Per Day: 0 Hx Chewing Tobacco Use: No Initiated information on smoking cessation: Yes 'Breaking Loose' booklet given: 08/15/16 - Substance & Tx. History Hx Alcohol Use: No Hx Substance Use: Yes Substance Use Type: Opiates, Tranquilizers Hx Substance Use Treatment: Yes - Substances Abused Alprazolam (Xanax) Route: Oral Frequency: Daily (8) Amount used: 8 MG Age of first use: 23 Date of Last Use: 08/15/16 Heroin Route: Inhalation Frequency: Daily Amount used: 10 BAGS Age of first use: 28 Date of Last Use: 08/15/16 Family Disease History - Family Disease History Family History: Unremarkable Admission Physical Exam BHS - Vital Signs Vital Signs: Vital Signs - 24 hr 08/15/16 17:38 Temperature 97.2 F L Pulse Rate 70 Respiratory 18 Rate Blood Pressure 120/70 - Physical General Appearance: Yes: Appropriately Dressed, Mild Distress, Tremorous, Irritable, Sweating, Anxious HEENTM: Yes: Hearing grossly Normal, Normal ENT Inspection, Normocephalic, Normal Voice Respiratory: Yes: Chest Non-Tender, Lungs Clear, Normal Breath Sounds, No Respiratory Distress, No Accessory Muscle Use Neck: Yes: Supple, Trachea in good position Breast: Yes: Breasts Symetrical Cardiology: Yes: Regular Rhythm, Regular Rate, S1, S2 Abdominal: Yes: Non Tender, Soft Genitourinary: Yes: Within Normal Limits Back: Yes: Normal Inspection Musculoskeletal: Yes: full range of Motion, Gait Steady, Back pain, Muscle Pain Extremities: Yes: Normal Range of Motion, Non-Tender, Tremors Neurological: Yes: Alert, Motor Strength 5/5, Normal Response, Depressed Affect Integumentary: Yes: Warm, Track Ahuja Lymphatic: Yes: Within Normal Limits - Diagnostic (1) Opioid dependence with withdrawal Current Visit: Yes Status: Acute (2) Sedative, hypnotic or anxiolytic dependence with withdrawal, uncomplicated Current Visit: Yes Status: Acute (3) Nicotine dependence Current Visit: Yes Status: Acute Qualifiers: Nicotine product type: cigarettes Substance use status: in withdrawal Qualified Code(s): F17.213 - Nicotine dependence, cigarettes, with withdrawal (4) Skin abrasion Current Visit: Yes Status: Acute (5) Depression (emotion) Current Visit: Yes Status: Suspected Qualifiers: Depression Type: dysthymia Qualified Code(s): F34.1 - Dysthymic disorder Cleared for Admission [facility] - Detox or Rehab [facility] Level of Care: Medically Managed Detox Regimen/Protocol: Methadone/Valium [facility] Breath Alcohol Content Breath Alcohol Content: 0 Urine Drug Screen - Results Drug Screen Negative: No Urine Drug Screen Results: OPI-Opiates, BZO-Benzodiazepines, MTD-Methadone
[2016-08-15] MEDS ORDERED: P-EPHED 60MG/TRIPROLIDI 2.5MG TABLET PO PRN (20:15)
[2016-08-15] MEDS ORDERED: LOPERAMIDE HCL 2 MG CAPSULE PO PRN (20:15)
[2016-08-15] MEDS ORDERED: diazePAM 5 MG TABLET PO ONE (20:15)
[2016-08-15] MEDS ORDERED: ACETAMINOPHEN 325 MG TABLET (FP) PO PRN (20:15)
[2016-08-15] MEDS ORDERED: MAGNESIUM HYDROX 2400MG/30ML ORAL SUSPENSION 30 ML CUP PO PRN (20:15)
[2016-08-15] MEDS ORDERED: NICOTINE POLACRILEX 2 MG GUM BC PRN (20:15)
[2016-08-15] MEDS ORDERED: MAGNESIUM CITRATE 300 ML BOTTLE PO PRN (20:15)
[2016-08-15] MEDS ORDERED: METHADONE HCL 10 MG TABLET (FOR DETOX USE ONLY) PO ONE ×2 (20:15→23:00)
[2016-08-15] MEDS ORDERED: MAG HYDROX/AL HYDROX/SIMETH 30 ML UNIT-DOSE CUP PO PRN (20:15)
[2016-08-15] MEDS ORDERED: MENTHOL/PHENOL 1 EACH UD MM PRN (20:15)
[2016-08-15] MEDS ORDERED: diphenhydrAMINE HCL 50 MG CAPSULE PO PRN (20:15)
[2016-08-15] MEDS ORDERED: guaiFENesin/D-METHORPHAN HB 10 ML UNIT-DOSE CUPS PO PRN (20:15)
[2016-08-15] MEDS ORDERED: BACITRACIN 0.9 GM PACKET TP PRN (20:18)
[2016-08-15] MEDS ORDERED: METHADONE HCL 10 MG TABLET (FOR DETOX USE ONLY) ONE (22:35)
[2016-08-15] MEDS: THIAMINE HCL 100 MG TABLET (FP) PO SCH (22:41)
[2016-08-15] MEDS: diazePAM 5 MG TABLET PO SCH (22:42)
[2016-08-15 23:26] LABS: URINE APPEARANCE CLEAR; URINE BILIRUBIN NEGATIVE (NEGATIVE); URINE BLOOD NEGATIVE (NEGATIVE); URINE COLOR YELLOW; URINE GLUCOSE (UA) NEGATIVE (NEGATIVE); URINE KETONE NEGATIVE (NEGATIVE); URINE LEUK ESTERASE NEGATIVE (NEGATIVE); URINE NITRITE NEGATIVE (NEGATIVE); URINE PROTEIN NEGATIVE (NEGATIVE); URINE UROBILINOGEN NEGATIVE E.U./dl (0.2-1.0)
[2016-08-16] MEDS: diazePAM 5 MG TABLET PO SCH ×3 (05:13→22:06)
[2016-08-16] MEDS ORDERED: METHADONE HCL 10 MG TABLET (FOR DETOX USE ONLY) PO SCH (10:00)
--- NOTE | 2016-08-16 10:01 | PN ---
S CIWA - CIWA Score Nausea/Vomitin Muscle Tremors: 3 Anxiety: 2 Agitation: 2 Paroxysmal Sweats: 1-Minimal Palms Moist Orientation: 0-Oriented Tacttile Disturbances: 1-Very Mild Itch/Numbness Auditory Disturbances: 1-Very Mild Visual Disturbances: 1-Very Mild Sensitivity Headache: 2-Mild CIWA-Ar Total Score: 16 BHS COWS - Scale Resting Pulse: 0= [place] 80 or Below Sweatin= Chills/Flushing Restless Observation: 3= Extraneous Movement Pupil Size: 1= Pupils >than Normal Bone or Joint Aches: 2= Severe Diffuse Aches Runny Nose/ Eye Tearin= Runny Nose/Eyes GI Upset > 30mins: 3= Vomiting/Diarrhea Tremor Observation of Outstretched Hands: 2= Slight Tremor Visible Yawning Observation: 1= 1-2x During Session Anxiety or Irritability: 2=Irritable/Anxious Goose Flesh Skin: 0=Smooth Skin COWS Score: 17 S Progress Note (SOAP) Subjective: ALERT,IRRITABLE,ANXIOUS,INTERRUPTED SLEEP,TREMOR,PAIN IN THE BODY AND BACK Objective: 08/16/16 09:59 Vital Signs Temperature 97.5 F L 08/16/16 06:20 Pulse Rate 95 H 08/16/16 06:20 Respiratory Rate 18 08/16/16 06:20 Blood Pressure 136/72 08/16/16 06:20 O2 Sat by Pulse Oximetry (%) 08/16/16 10:00 EKG NSR WITH SINUS ARRHYTHMIA Laboratory Last Values Urine Color Yellow 08/15/16 Unknown Urine Appearance Clear 08/15/16 Unknown Urine pH 5.0 (5.0-8.0) 08/15/16 Unknown Urine Protein Negative (NEGATIVE) 08/15/16 Unknown Urine Glucose (UA) Negative (NEGATIVE) 08/15/16 Unknown Urine Ketones Negative (NEGATIVE) 08/15/16 Unknown Urine Blood Negative (NEGATIVE) 08/15/16 Unknown Urine Nitrite Negative (NEGATIVE) 08/15/16 Unknown Urine Bilirubin Negative (NEGATIVE) 08/15/16 Unknown Urine Urobilinogen Negative E.U./dl (0.2-1.0) 08/15/16 Unknown Ur Leukocyte Esterase Negative (NEGATIVE) 08/15/16 Unknown LABS PENDING Assessment: 08/16/16 10:01 WITHDRAWAL SYMPTOM Plan: CONTINUE DETOX
[2016-08-16] MEDS: PRENATAL VITAMINS W/ FOLIC ACID TABLET (FP) PO SCH (10:05)
[2016-08-16] MEDS: NICOTINE 14 MG/24 HOURS TOPICAL PATCH TD SCH (10:07)
[2016-08-16] MEDS: CYCLOBENZAPRINE HCL 10 MG TABLET (FP) PO PRN ×2 (10:08→18:52)
[2016-08-16 10:15] LABS: MCH 28.6 pg (25.7-33.7); MCHC 34.3 g/dl (32.0-35.9); MEAN CELL VOLUME 83.2 fl (80-96); MEAN PLT VOLUME 8.9 fl (7.5-11.1); PLATELET COUNT 307 K/MM3 (134-434); RDW 15.2 % (11.9-15.9); WHITE BLOOD COUNT 7.5 K/mm3 (4.0-10.0)
[2016-08-16 11:15] LABS: ALBUMIN 3.8 g/dl (3.4-5.0); ALK PHOS 119 U/L (45-117); ANION GAP 10 (8-16); BILIRUBIN,TOTAL 0.5 mg/dL (0.2-1.0); CALCIUM 9.3 mg/dL (8.5-10.1); CO2 27 mmol/L (21-32); COCKROFT - GAULT 171.67; CREATININE 0.7 mg/dL (0.7-1.3); GLUCOSE,RANDOM 84 mg/dL (74-106); SGOT/AST 14 U/L (15-37); SGPT/ALT 24 U/L (12-78); TOT PROT 7.1 g/dl (6.4-8.2)
--- NOTE | 2016-08-16 11:57 | EKG ---
Test Reason : Blood Pressure : / mmHG Vent. Rate : 065 BPM Atrial Rate : 065 BPM P-R Int : 142 ms QRS Dur : 092 ms QT Int : 400 ms P-R-T Axes : -15 077 042 degrees QTc Int : 416 ms NORMAL SINUS RHYTHM WITH SINUS ARRHYTHMIA NORMAL ECG WHEN COMPARED WITH ECG OF 05-JUL-2016 12:47, NO SIGNIFICANT CHANGE WAS FOUND Confirmed by JENNIFER TOVAR, ROSY ([id number]) on 08/16/2016 11:57:03 AM Referred By: Confirmed By:ROSY RODRIGUEZ MD
[2016-08-16] MEDS: cloNIDine HCL 0.1 MG TABLET PO SCH ×2 (12:00→22:06)
--- NOTE | 2016-08-16 15:41 | CONSULT ---
[facility] Psychiatric Consult - Data Date of interview: 08/16/16 Admission source: [facility] Identifying data: Another admission to [facility] for this 31 y/o [place]ian male seeking detox treatment on for opioid and benzodiazepine dependence.Patient is ,afather of one,domiciled and supported on odd jobs. Substance Abuse History: - Smoking Cessation. Smoking history: Current some day smoker. Have you smoked in the past 12 months: Yes. Aproximately how many cigarettes per day: 4. Cigars Per Day: 0. Hx Chewing Tobacco Use: No. Initiated information on smoking cessation: Yes. 'Breaking Loose' booklet given : 08/15/16. - Substance & Tx. History. Hx Alcohol Use: No. Hx Substance Use: Yes. Substance Use Type: Opiates, Tranquilizers. Hx Substance Use Treatment: Yes. - Substances Abused. Alprazolam (Xanax). Route: Oral. Frequency: Daily (8). Amount used: 8 MG. Age of first use: 23. Date of Last Use: . Heroin. Route: Inhalation. Frequency: Daily. Amount used: 10 BAGS. Age of first use: 28. Date of Last Use: 08/15/16. Confirmed by patient. Medical History: Lower back pain (chronic lumbago secondary to fall from collapsed stairs).Patient underwent lumbar spine surgery in 06/2015 (two disks removed). Psychiatric History: Patient denies. Physical/Sexual Abuse/Trauma History: Patient denies. Additional Comment: Urine Drug Screen Results: OPI-Opiates, BZO-Benzodiazepines , MTD-Methadone.Noted. Mental Status Exam - Mental Status Exam Alert and Oriented to: Time, Place, Person Cognitive Function: Good Patient Appearance: Well Groomed Mood: Nervous, Withdrawn, Anxious Affect: Mood Congruent Patient Behavior: Fatigued, Appropriate, Cooperative Speech Pattern: Clear Voice Loudness: Normal Thought Process: Goal Oriented Thought Disorder: Not Present Hallucinations: Denies Suicidal Ideation: Denies Homicidal Ideation: Denies Insight/Judgement: Poor Sleep: Poorly, Difficulty falling asleep Appetite: Good Muscle strength/Tone: Normal Gait/Station: Normal Psychiatric Findings - Problem List ([place] 1, 2,3) (1) Opioid dependence with withdrawal Current Visit: Yes Status: Acute (2) Sedative, hypnotic or anxiolytic dependence with withdrawal, uncomplicated Current Visit: Yes Status: Acute (3) Nicotine dependence Current Visit: Yes Status: Acute Qualifiers: Nicotine product type: cigarettes Substance use status: in withdrawal Qualified Code(s): F17.213 - Nicotine dependence, cigarettes, with withdrawal (4) Substance induced mood disorder Current Visit: Yes Status: Acute (5) Lumbago due to displacement of intervertebral disc Current Visit: Yes Status: Chronic (6) Insomnia Current Visit: Yes Status: Acute - Initial Treatment Plan Initial Treatment Plan: Psychoeducation.Detoxification.Ambien 10 mg po hs.Patient is made aware of potential for parasomnias.He is in agreement with this careplan.Observation.
[2016-08-16] MEDS: diazePAM 5 MG TABLET PO PRN (18:51)
[2016-08-16] MEDS: THIAMINE HCL 100 MG TABLET (FP) PO SCH (22:08)
[2016-08-16] MEDS: ZOLPIDEM TARTRATE 10 MG TABLET (PARK CARE ONLY) PO PRN (22:08)
[2016-08-17] MEDS: diazePAM 5 MG TABLET PO PRN ×3 (01:10→17:51)
[2016-08-17] MEDS: CYCLOBENZAPRINE HCL 10 MG TABLET (FP) PO PRN ×3 (01:11→22:13)
[2016-08-17] MEDS: IBUPROFEN 400 MG TABLET (FP) PO PRN (06:17)
[2016-08-17] MEDS: cloNIDine HCL 0.1 MG TABLET PO SCH (10:05)
[2016-08-17] MEDS: NICOTINE 14 MG/24 HOURS TOPICAL PATCH TD SCH (10:05)
[2016-08-17] MEDS: METHADONE HCL 5 MG TABLET (FOR DETOX USE ONLY) PO SCH (10:05)
[2016-08-17] MEDS: PRENATAL VITAMINS W/ FOLIC ACID TABLET (FP) PO SCH (10:05)
[2016-08-17] MEDS: diazePAM 5 MG TABLET PO SCH ×2 (10:05→22:13)
--- NOTE | 2016-08-17 10:22 | PN ---
[facility] CIWA - CIWA Score Nausea/Vomitin Muscle Tremors: 3 Anxiety: 3 Agitation: 2 Paroxysmal Sweats: 1-Minimal Palms Moist Orientation: 0-Oriented Tacttile Disturbances: 1-Very Mild Itch/Numbness Auditory Disturbances: 1-Very Mild Visual Disturbances: 1-Very Mild Sensitivity Headache: 2-Mild CIWA-Ar Total Score: 17 BHS COWS - Scale Resting Pulse: 0= [place] 80 or Below Sweatin= Chills/Flushing Restless Observation: 3= Extraneous Movement Pupil Size: 1= Pupils >than Normal Bone or Joint Aches: 2= Severe Diffuse Aches Runny Nose/ Eye Tearin= Runny Nose/Eyes GI Upset > 30mins: 3= Vomiting/Diarrhea Tremor Observation of Outstretched Hands: 2= Slight Tremor Visible Yawning Observation: 1= 1-2x During Session Anxiety or Irritability: 2=Irritable/Anxious Goose Flesh Skin: 0=Smooth Skin COWS Score: 17 [facility] Progress Note (SOAP) Subjective: ALERT,IRRITABLE,ANXIOUS,INTERRUPTED SLEEP,TREMOR,PAIN IN THE BODY AND BACK Objective: 08/17/16 10:20 Vital Signs Temperature 97.7 F 08/17/16 09:57 Pulse Rate 66 08/17/16 09:57 Respiratory Rate 18 08/17/16 09:57 Blood Pressure 99/62 08/17/16 09:57 O2 Sat by Pulse Oximetry (%) 08/17/16 10:21 Laboratory Last Values WBC 7.5 K/mm3 (4.0-10.0) 08/16/16 07:00 RBC 4.62 M/mm3 (4.00-5.60) 08/16/16 07:00 Hgb 13.2 GM/dL (11.7-16.9) 08/16/16 07:00 Hct 38.4 % (35.4-49) 08/16/16 07:00 MCV 83.2 fl (80-96) 08/16/16 07:00 MCHC 34.3 g/dl (32.0-35.9) 08/16/16 07:00 RDW 15.2 % (11.9-15.9) 08/16/16 07:00 Plt Count 307 K/MM3 (134-434) D 08/16/16 07:00 MPV 8.9 fl (7.5-11.1) D 08/16/16 07:00 Sodium 140 mmol/L (136-145) 08/16/16 07:00 Potassium 4.4 mmol/L (3.5-5.1) 08/16/16 07:00 Chloride 103 mmol/L (98-107) 08/16/16 07:00 Carbon Dioxide 27 mmol/L (21-32) 08/16/16 07:00 Anion Gap 10 (8-16) 08/16/16 07:00 BUN 17 mg/dL (7-18) D 08/16/16 07:00 Creatinine 0.7 mg/dL (0.7-1.3) 08/16/16 07:00 Creat Clearance w eGFR > 60 (>60) 08/16/16 07:00 Random Glucose 84 mg/dL (74-106) D 08/16/16 07:00 Calcium 9.3 mg/dL (8.5-10.1) 08/16/16 07:00 Total Bilirubin 0.5 mg/dL (0.2-1.0) D 08/16/16 07:00 AST 14 U/L (15-37) L D 08/16/16 07:00 ALT 24 U/L (12-78) D 08/16/16 07:00 Alkaline Phosphatase 119 U/L (45-117) H 08/16/16 07:00 Total Protein 7.1 g/dl (6.4-8.2) 08/16/16 07:00 Albumin 3.8 g/dl (3.4-5.0) 08/16/16 07:00 Urine Color Yellow 08/15/16 Unknown Urine Appearance Clear 08/15/16 Unknown Urine pH 5.0 (5.0-8.0) 08/15/16 Unknown Ur Specific [place] 1.025 (1.005-1.025) 08/15/16 Unknown Urine Protein Negative (NEGATIVE) 08/15/16 Unknown Urine Glucose (UA) Negative (NEGATIVE) 08/15/16 Unknown Urine Ketones Negative (NEGATIVE) 08/15/16 Unknown Urine Blood Negative (NEGATIVE) 08/15/16 Unknown Urine Nitrite Negative (NEGATIVE) 08/15/16 Unknown Urine Bilirubin Negative (NEGATIVE) 08/15/16 Unknown Urine Urobilinogen Negative E.U./dl (0.2-1.0) 08/15/16 Unknown Ur Leukocyte Esterase Negative (NEGATIVE) 08/15/16 Unknown RPR Titer Nonreactive (NONREACTIVE) 08/16/16 07:00 08/17/16 10:21 Assessment: 08/17/16 10:21 WITHDRAWAL SYMPTOM 08/17/16 10:22 Plan: CONTINUE DETOX,[facility] 100 MGS PO HS FOR INSOMNIA
[2016-08-17] MEDS: THIAMINE HCL 100 MG TABLET (FP) PO SCH (22:13)
[2016-08-17] MEDS: ZOLPIDEM TARTRATE 10 MG TABLET (PARK CARE ONLY) PO PRN (22:13)
[2016-08-17] MEDS: hydrOXYzine PAMOATE 50 MG CAPSULE (FP) PO SCH (22:13)
[2016-08-18] MEDS: diazePAM 5 MG TABLET PO PRN (07:06)
[2016-08-18] MEDS ORDERED: TRIMETHOBENZAMIDE HCL 300 MG CAPSULE PO PRN (09:44)
--- NOTE | 2016-08-18 09:51 | PN ---
BHS Progress Note (SOAP) Subjective: muscle cramp/jumpy sweats nausea agitation Objective: 08/18/16 09:50 Vital Signs Temperature 98.1 F 08/18/16 09:41 Pulse Rate 81 08/18/16 09:41 Respiratory Rate 18 08/18/16 09:41 Blood Pressure 98/61 08/18/16 09:41 O2 Sat by Pulse Oximetry (%) Laboratory Tests 08/15/16 08/16/16 08/16/16 Unknown 07:00 07:00 WBC 7.5 RBC 4.62 Hgb 13.2 Hct 38.4 MCV 83.2 MCHC 34.3 RDW 15.2 Plt Count 307 D MPV 8.9 D Sodium 140 Potassium 4.4 Chloride 103 Carbon Dioxide 27 Anion Gap 10 BUN 17 D Creatinine 0.7 Creat Clearance w eGFR > 60 Random Glucose 84 D Calcium 9.3 Total Bilirubin 0.5 D AST 14 L D ALT 24 D Alkaline Phosphatase 119 H Total Protein 7.1 Albumin 3.8 Urine Color Yellow Urine Appearance Clear Urine pH 5.0 Ur Specific [place] 1.025 Urine Protein Negative Urine Glucose (UA) Negative Urine Ketones Negative Urine Blood Negative Urine Nitrite Negative Urine Bilirubin Negative Urine Urobilinogen Negative Ur Leukocyte Esterase Negative RPR Titer 08/16/16 07:00 WBC RBC Hgb Hct MCV MCHC RDW Plt Count MPV Sodium Potassium Chloride Carbon Dioxide Anion Gap BUN Creatinine Creat Clearance w eGFR Random Glucose Calcium Total Bilirubin AST ALT Alkaline Phosphatase Total Protein Albumin Urine Color Urine Appearance Urine pH Ur Specific [place] Urine Protein Urine Glucose (UA) Urine Ketones Urine Blood Urine Nitrite Urine Bilirubin Urine Urobilinogen Ur Leukocyte Esterase RPR Titer Nonreactive awake/alert ambulating no acute distress Assessment: 08/18/16 09:50 withdrawal sx Plan: continue detox increase fluids flexiril prn tigan po prn
[2016-08-18] MEDS: CYCLOBENZAPRINE HCL 10 MG TABLET (FP) PO PRN (10:04)
[2016-08-18] MEDS: PRENATAL VITAMINS W/ FOLIC ACID TABLET (FP) PO SCH (10:04)
[2016-08-18] MEDS: METHADONE HCL 5 MG TABLET (FOR DETOX USE ONLY) PO SCH (10:04)
[2016-08-18] MEDS: cloNIDine HCL 0.1 MG TABLET PO SCH ×2 (10:05→22:28)
[2016-08-18] MEDS: diazePAM 5 MG TABLET PO SCH ×2 (10:05→22:28)
[2016-08-18] MEDS: NICOTINE 14 MG/24 HOURS TOPICAL PATCH TD SCH (10:05)
[2016-08-18] MEDS: THIAMINE HCL 100 MG TABLET (FP) PO SCH (22:27)
[2016-08-18] MEDS: hydrOXYzine PAMOATE 50 MG CAPSULE (FP) PO SCH (22:27)
[2016-08-19] MEDS: CYCLOBENZAPRINE HCL 10 MG TABLET (FP) PO PRN ×2 (06:47→22:08)
--- NOTE | 2016-08-19 09:49 | PN ---
BHS Progress Note (SOAP) Subjective: anxiety little sweats feeling better Objective: 08/19/16 09:47 Vital Signs Temperature 97.2 F 08/19/16 10:00 Pulse Rate 74 08/19/16 10:00 Respiratory Rate 20 08/19/16 10:00 Blood Pressure 100/65 08/19/16 10:00 O2 Sat by Pulse Oximetry (%) awake/alert ambulating no acute distress Assessment: 08/19/16 09:49 withdrawal sx Plan: continue detox increase fluids d/c in am
[2016-08-19] MEDS: cloNIDine HCL 0.1 MG TABLET PO SCH ×3 (10:00→22:08)
[2016-08-19] MEDS ORDERED: METHADONE HCL 10 MG TABLET (FOR DETOX USE ONLY) PO SCH (10:00)
[2016-08-19] MEDS ORDERED: diazePAM 5 MG TABLET PO SCH (10:00)
[2016-08-19] MEDS: PRENATAL VITAMINS W/ FOLIC ACID TABLET (FP) PO SCH (10:09)
[2016-08-19] MEDS: NICOTINE 14 MG/24 HOURS TOPICAL PATCH TD SCH (10:10)
[2016-08-19 18:58] VITALS: TEMP 97.7
[2016-08-19] MEDS: THIAMINE HCL 100 MG TABLET (FP) PO SCH (22:08)
[2016-08-19] MEDS: hydrOXYzine PAMOATE 50 MG CAPSULE (FP) PO SCH (22:09)
[2016-08-20] MEDS: CYCLOBENZAPRINE HCL 10 MG TABLET (FP) PO PRN (05:26)
[2016-08-20] MEDS ORDERED: METHADONE HCL 5 MG TABLET (FOR DETOX USE ONLY) PO SCH (06:00)
[2016-08-20 06:18] VITALS: BP 102/53; PULSE 79
[2016-08-20] MEDS: IBUPROFEN 400 MG TABLET (FP) PO PRN (06:32)
--- NOTE | 2016-08-20 07:55 | PN ---
S Progress Note (SOAP) Subjective: alert,no complaint Objective: 08/20/16 07:54 Vital Signs Temperature 97.7 F 08/20/16 06:17 Pulse Rate 79 08/20/16 06:17 Respiratory Rate 18 08/20/16 06:17 Blood Pressure 102/53 08/20/16 06:17 O2 Sat by Pulse Oximetry (%) Assessment: 08/20/16 07:54 detox completed,no withdrawal symptom Plan: discharge today,follow up with after care program as arrangement
--- NOTE | 2016-08-20 07:58 | DS ---
[facility] Detox Discharge Summary Admission Date: 08/15/16 Discharge Date: 08/20/16 - History Present History: Opioid Dependence, Sedative Dependence Additional Comments: follow up with after care program as arrangement Pertinent Past History: nicotine dependence - Physical Exam Results Vital Signs: Vital Signs Temperature 97.7 F 08/20/16 06:17 Pulse Rate 79 08/20/16 06:17 Respiratory Rate 18 08/20/16 06:17 Blood Pressure 102/53 08/20/16 06:17 O2 Sat by Pulse Oximetry (%) Pertinent Admission Physical Exam Findings: withdrawal symptom - Treatment Hospital Course: Detox Protocol Followed, Detoxed Safely, Responded well, Discharged Condition Good Patient has Accepted a Rehab Referral to: declined - Medication Discharge Medications: Ambulatory Orders Quetiapine Fumarate [Seroquel] 100 mg PO HS #30 tablet 07/07/16 - AMA Did Patient Leave Against Medical Advice: No
== END 2016-08-20 09:28 | disposition home or self-care (01) | DRG 773 ==
LOC: YASAS 14:28 → Y6N 20:29
PROVIDERS: ADMIT Internal Medicine; ATTEND Internal Medicine
PROC: HZ2ZZZZ Detoxification Services for Substance Abuse Treatment (ICD-10-PCS; principal; 2016-08-15)
DX: F11.23 Opioid dependence with withdrawal (principal); F13.230 Sedative, hypnotic or anxiolytic dependence with withdrawal, uncomplicated; F17.213 Nicotine dependence, cigarettes, with withdrawal; F34.1 Dysthymic disorder; F19.24 Other psychoactive substance dependence with psychoactive substance-induced mood disorder; M54.5 Low back pain; G47.00 Insomnia, unspecified; I49.9 Cardiac arrhythmia, unspecified; T14.8 Other injury of unspecified body region
CPT/HCPCS: 36415; 80053; 81003; 85027; 86593; 93005; 93010; J0735

== ENCOUNTER 2016-10-12 13:41 | Inpatient (IN) | payer OTHER ==
[2016-10-12 14:12] VITALS: BMI 27.3
--- NOTE | 2016-10-12 17:25 | HP ---
COWS - Scale Resting Pulse: 0= [place] 80 or Below Sweatin=Flushed/Facial Moisture Restless Observation: 1= Difficult to Sit Still Pupil Size: 2= Moderately Dilated Bone or Joint Aches: 1= Mild Discomfort Runny Nose/ Eye Tearin= Runny Nose/Eyes GI Upset > 30mins: 2= Nausea/Diarrhea Tremor Observation: 2= Slight Tremor Visible Yawning Observation: 1= 1-2x During Session Anxiety or Irritability: 2=Irritable/Anxious Goose Flesh Skin: 0=Smooth Skin COWS Score: 15 CIWA Score - CIWA Score Nausea/Vomitin-Mild Nausea/No Vomiting Muscle Tremors: 4-Moderate,w/Arms Extend Anxiety: 4-Mod. Anxious/Guarded Agitation: 4-Moderately Restless Paroxysmal Sweats: 3 Orientation: 0-Oriented Tacttile Disturbances: 0-None Auditory Disturbances: 0-None Visual Disturbances: 0-None Headache: 0-None Present CIWA-Ar Total Score: 16 Admission ROS BHS - HPI Chief Complaint: Withdrawal sx. Allergies/Adverse Reactions: Allergies Allergy/AdvReac Type Severity Reaction Status Date / Time No Known Allergies Allergy Verified 10/12/16 16:17 History of Present Illness: 31 y/o man with a long hx. of drug dependence is admitted for detox. Pt. has been in previous detox, denies significant period drug free. Exam Limitations: No Limitations - Ebola screening Have you traveled outside of the country in the last 21 days: No Have you had contact with anyone from an Ebola affected area: No Have you been sick,other than usual withdrawal symptoms: No Do you have a fever: No - Review of Systems Constitutional: Diaphoresis EENT: reports: Nose Congestion Respiratory: reports: No Symptoms reported Cardiac: reports: No Symptoms Reported GI: reports: Nausea, Abdominal cramping : reports: No Symptoms Reported Musculoskeletal: reports: Back Pain Integumentary: reports: Sweating Neuro: reports: Tremors Endocrine: reports: No Symptoms Reported Hematology: reports: No Symptoms Reported Psychiatric: reports: No Sypmtoms Reported Other Systems: Reviewed and Negative Patient History - Patient Medical History Hx Anemia: No Hx Asthma: No Hx Chronic Obstructive Pulmonary Disease (COPD): No Hx Cancer: No Hx Cardiac Disorders: No Hx Congestive Heart Failure: No Hx Hypertension: No Hx Hypercholesterolemia: No Hx Pacemaker: No HX Cerebrovascular Accident: No Hx Seizures: No Hx Dementia: No Hx Diabetes: No Hx Gastrointestinal Disorders: No Hx Liver Disease: No Hx Genitourinary Disorders: No Hx Sexually Transmitted Disorders: No Hx Renal Disease (ESRD): No Hx Thyroid Disease: No Hx Human Immunodeficiency Virus (HIV): No Hx Hepatitis C: No Hx Depression: No Hx Suicide Attempt: No Hx Bipolar Disorder: No Hx Schizophrenia: No - Patient Surgical History Past Surgical History: Yes Hx Neurologic Surgery: No Hx Cataract Extraction: No Hx Cardiac Surgery: No Hx Lung Surgery: No Hx Breast Surgery: No Hx Breast Biopsy: No Hx Abdominal Surgery: No Hx Appendectomy: No Hx Cholecystectomy: No Hx Genitourinary Surgery: No Hx Orthopedic Surgery: Yes (LUMBAR SPINE SURGERY 06/2015 RELATED TO FALL) Anesthesia Reaction: No - PPD History Previous Implant?: Yes Documented Results: Negative w/proof Implanted On Prior [facility] Admission?: Yes Date: 12/07/15 Results: 0 mm PPD to be Administered?: No - Smoking Cessation Smoking history: Current some day smoker Have you smoked in the past 12 months: Yes Aproximately how many cigarettes per day: 6 Cigars Per Day: 0 Hx Chewing Tobacco Use: No Initiated information on smoking cessation: Yes 'Breaking Loose' booklet given: 10/12/16 - Substance & Tx. History Hx Alcohol Use: No Hx Substance Use: Yes Substance Use Type: Heroin, Tranquilizers Hx Substance Use Treatment: Yes (Detox) - Substances Abused Heroin Route: Inhalation Frequency: Daily Amount used: 6 bags Age of first use: 30 Date of Last Use: 10/12/16 Xanax Route: Oral Frequency: Daily Amount used: 6 mg. Age of first use: 30 Date of Last Use: 10/12/16 Family Disease History - Family Disease History Family History: Denies Admission Physical Exam S - Vital Signs Vital Signs: Vital Signs - 24 hr 10/12/16 14:10 Temperature 95.9 F L Pulse Rate 64 Respiratory 20 Rate Blood Pressure 126/72 - Physical General Appearance: Yes: Tremorous, Sweating, Anxious HEENTM: Yes: Nasal Congestion, Rhinorrhea Respiratory: Yes: Chest Non-Tender, Lungs Clear, Normal Breath Sounds Neck: Yes: Supple Breast: Yes: Breast Exam Deferred Cardiology: Yes: Regular Rhythm, Regular Rate, S1, S2 Abdominal: Yes: Normal Bowel Sounds, Non Tender, Soft Genitourinary: Yes: Within Normal Limits Back: Yes: Within Normal Limits Musculoskeletal: Yes: full range of Motion Extremities: Yes: Tremors Neurological: Yes: Fully Oriented, Alert Integumentary: Yes: Diaphoresis Lymphatic: Yes: Within Normal Limits - Diagnostic (1) Nicotine dependence Current Visit: Yes Status: Acute Qualifiers: Nicotine product type: cigarettes Substance use status: in withdrawal Qualified Code(s): F17.213 - Nicotine dependence, cigarettes, with withdrawal (2) Opioid dependence with withdrawal Current Visit: Yes Status: Acute (3) Sedative, hypnotic or anxiolytic dependence with withdrawal, uncomplicated Current Visit: Yes Status: Acute Cleared for Admission S - Detox or Rehab [facility] Level of Care: Medically Managed Detox Regimen/Protocol: Methadone/Valium S Breath Alcohol Content Breath Alcohol Content: 0 Urine Drug Screen - Results Drug Screen Negative: No Urine Drug Screen Results: OPI-Opiates, BZO-Benzodiazepines
[2016-10-12] MEDS ORDERED: IBUPROFEN 400 MG TABLET (FP) PO PRN (17:33)
[2016-10-12] MEDS ORDERED: MAGNESIUM HYDROX 2400MG/30ML ORAL SUSPENSION 30 ML CUP PO PRN (17:33)
[2016-10-12] MEDS ORDERED: MAGNESIUM CITRATE 300 ML BOTTLE PO PRN (17:33)
[2016-10-12] MEDS ORDERED: MENTHOL/PHENOL 1 EACH UD MM PRN (17:33)
[2016-10-12] MEDS ORDERED: diazePAM 5 MG TABLET PO ONE (17:33)
[2016-10-12] MEDS ORDERED: MAG HYDROX/AL HYDROX/SIMETH 30 ML UNIT-DOSE CUP PO PRN (17:33)
[2016-10-12] MEDS ORDERED: guaiFENesin/D-METHORPHAN HB 10 ML UNIT-DOSE CUPS PO PRN (17:33)
[2016-10-12] MEDS ORDERED: hydrOXYzine PAMOATE 50 MG CAPSULE (FP) PO PRN (17:33)
[2016-10-12] MEDS ORDERED: LOPERAMIDE HCL 2 MG CAPSULE PO PRN (17:33)
[2016-10-12] MEDS ORDERED: ACETAMINOPHEN 325 MG TABLET (FP) PO PRN (17:33)
[2016-10-12] MEDS ORDERED: NICOTINE POLACRILEX 2 MG GUM BUC PRN (17:33)
[2016-10-12] MEDS ORDERED: P-EPHED 60MG/TRIPROLIDI 2.5MG TABLET PO PRN (17:33)
[2016-10-12] MEDS ORDERED: METHADONE HCL 10 MG TABLET (FOR DETOX USE ONLY) PO ONE ×2 (17:33→23:00)
[2016-10-12] MEDS: NICOTINE 14 MG/24 HOURS TOPICAL PATCH TD SCH (18:05)
[2016-10-12 22:09] LABS: URINE APPEARANCE CLEAR; URINE BILIRUBIN NEGATIVE (NEGATIVE); URINE BLOOD NEGATIVE (NEGATIVE); URINE COLOR YELLOW; URINE GLUCOSE (UA) NEGATIVE (NEGATIVE); URINE KETONE NEGATIVE (NEGATIVE); URINE LEUK ESTERASE NEGATIVE (NEGATIVE); URINE NITRITE NEGATIVE (NEGATIVE); URINE PROTEIN NEGATIVE (NEGATIVE); URINE UROBILINOGEN NEGATIVE mg/dL (0.2-1.0)
[2016-10-12] MEDS: THIAMINE HCL 100 MG TABLET (FP) PO SCH (22:33)
[2016-10-12] MEDS: diazePAM 5 MG TABLET PO SCH (22:33)
[2016-10-12] MEDS: diphenhydrAMINE HCL 50 MG CAPSULE PO PRN (22:34)
[2016-10-13] MEDS: diazePAM 5 MG TABLET PO SCH ×3 (05:33→22:49)
[2016-10-13 09:59] LABS: MCH 28.3 pg (25.7-33.7); MCHC 33.1 g/dl (32.0-35.9); MEAN CELL VOLUME 85.4 fl (80-96); MEAN PLT VOLUME 9.5 fl (7.5-11.1); PLATELET COUNT 231 K/MM3 (134-434); RDW 14.4 % (11.9-15.9); WHITE BLOOD COUNT 5.9 K/mm3 (4.0-10.0)
[2016-10-13] MEDS ORDERED: METHADONE HCL 10 MG TABLET (FOR DETOX USE ONLY) PO SCH (10:00)
[2016-10-13 10:33] LABS: ALBUMIN 3.6 g/dl (3.4-5.0); ALK PHOS 97 U/L (45-117); ANION GAP 5 (8-16); BILIRUBIN,TOTAL 0.6 mg/dL (0.2-1.0); CALCIUM 9.2 mg/dL (8.5-10.1); CO2 30 mmol/L (21-32); CREATININE 0.7 mg/dL (0.7-1.3); GLUCOSE,RANDOM 89 mg/dL (74-106); SGOT/AST 12 U/L (15-37); SGPT/ALT 30 U/L (12-78); TOT PROT 6.6 g/dl (6.4-8.2)
[2016-10-13] MEDS: PRENATAL VITAMINS W/ FOLIC ACID TABLET (FP) PO SCH (10:54)
[2016-10-13] MEDS: NICOTINE 14 MG/24 HOURS TOPICAL PATCH TD SCH (10:54)
[2016-10-13] MEDS: diazePAM 5 MG TABLET PO PRN ×2 (10:58→18:25)
--- NOTE | 2016-10-13 11:07 | PN ---
[facility] CIWA - CIWA Score Nausea/Vomitin-No Nausea/No Vomiting Muscle Tremors: 4-Moderate,w/Arms Extend Anxiety: 4-Mod. Anxious/Guarded Agitation: 4-Moderately Restless Paroxysmal Sweats: 2 Orientation: 0-Oriented Tacttile Disturbances: 3-Moderate Itch/Numb/Burn Auditory Disturbances: 0-None Visual Disturbances: 0-None Headache: 0-None Present CIWA-Ar Total Score: 17 BHS COWS - Scale Resting Pulse: 0= DC 80 or Below Sweatin= Chills/Flushing Restless Observation: 3= Extraneous Movement Pupil Size: 2= Moderately Dilated Bone or Joint Aches: 4=Acute Joint/Muscle Pain Runny Nose/ Eye Tearin= Nasal Congestion GI Upset > 30mins: 1= Stomach Cramp Tremor Observation of Outstretched Hands: 1= Tremor [place], Not Seen Yawning Observation: 1= 1-2x During Session Anxiety or Irritability: 2=Irritable/Anxious Goose Flesh Skin: 0=Smooth Skin COWS Score: 16 S Progress Note (SOAP) Subjective: ANXIETY,TREMORS,SWEATS, BODY ACHES. Objective: 10/13/16 11:06 Vital Signs Temperature 97.5 F L 10/13/16 09:21 Pulse Rate 69 10/13/16 09:21 Respiratory Rate 18 10/13/16 09:21 Blood Pressure 115/80 10/13/16 09:21 O2 Sat by Pulse Oximetry (%) Laboratory Last Values WBC 5.9 K/mm3 (4.0-10.0) 10/13/16 07:30 RBC 4.70 M/mm3 (4.00-5.60) 10/13/16 07:30 Hgb 13.3 GM/dL (11.7-16.9) 10/13/16 07:30 Hct 40.2 % (35.4-49) 10/13/16 07:30 MCV 85.4 fl (80-96) 10/13/16 07:30 MCH 28.3 pg (25.7-33.7) 10/13/16 07:30 MCHC 33.1 g/dl (32.0-35.9) 10/13/16 07:30 RDW 14.4 % (11.9-15.9) 10/13/16 07:30 Plt Count 231 K/MM3 (134-434) D 10/13/16 07:30 MPV 9.5 fl (7.5-11.1) 10/13/16 07:30 Sodium 139 mmol/L (136-145) 10/13/16 07:30 Potassium 4.7 mmol/L (3.5-5.1) 10/13/16 07:30 Chloride 104 mmol/L (98-107) 10/13/16 07:30 Carbon Dioxide 30 mmol/L (21-32) 10/13/16 07:30 Anion Gap 5 (8-16) L 10/13/16 07:30 BUN 12 mg/dL (7-18) D 10/13/16 07:30 Creatinine 0.7 mg/dL (0.7-1.3) 10/13/16 07:30 Creat Clearance w eGFR > 60 (>60) 10/13/16 07:30 Random Glucose 89 mg/dL (74-106) 10/13/16 07:30 Calcium 9.2 mg/dL (8.5-10.1) 10/13/16 07:30 Total Bilirubin 0.6 mg/dL (0.2-1.0) 10/13/16 07:30 AST 12 U/L (15-37) L 10/13/16 07:30 ALT 30 U/L (12-78) D 10/13/16 07:30 Alkaline Phosphatase 97 U/L (45-117) 10/13/16 07:30 Total Protein 6.6 g/dl (6.4-8.2) 10/13/16 07:30 Albumin 3.6 g/dl (3.4-5.0) 10/13/16 07:30 Urine Color Yellow 10/12/16 21:30 Urine Appearance Clear 10/12/16 21:30 Urine pH 8.0 (5.0-8.0) D 10/12/16 21:30 Urine Protein Negative (NEGATIVE) 10/12/16 21:30 Urine Glucose (UA) Negative (NEGATIVE) 10/12/16 21:30 Urine Ketones Negative (NEGATIVE) 10/12/16 21:30 Urine Blood Negative (NEGATIVE) 10/12/16 21:30 Urine Nitrite Negative (NEGATIVE) 10/12/16 21:30 Urine Bilirubin Negative (NEGATIVE) 10/12/16 21:30 Urine Urobilinogen Negative mg/dL (0.2-1.0) 10/12/16 21:30 Ur Leukocyte Esterase Negative (NEGATIVE) 10/12/16 21:30 Assessment: 10/13/16 11:07 WITHDRAWAL SX Plan: CONTINUE DETOX
--- NOTE | 2016-10-13 11:29 | EKG ---
Test Reason : Blood Pressure : / mmHG Vent. Rate : 062 BPM Atrial Rate : 062 BPM P-R Int : 138 ms QRS Dur : 098 ms QT Int : 412 ms P-R-T Axes : 004 081 057 degrees QTc Int : 418 ms NORMAL SINUS RHYTHM WITH SINUS ARRHYTHMIA NORMAL ECG WHEN COMPARED WITH ECG OF 15-AUG-2016 21:33, NO SIGNIFICANT CHANGE WAS FOUND Confirmed by MELANIE SHI MD ([id number]) on 10/13/2016 11:28:26 AM Referred By: Rogerio Gómez Confirmed By:MELANIE SHI MD
[2016-10-13] MEDS ORDERED: ONDANSETRON *ODT* 4 MG TABLET SL PRN (12:03)
[2016-10-13] MEDS ORDERED: TRIMETHOBENZAMIDE HCL 200MG/2ML INJ IM PRN (12:04)
--- NOTE | 2016-10-13 14:25 | CONSULT ---
[facility] Psych[facility] Consult - Data Date of interview: 10/13/16 [facility] Identifying data: This is 31 years old male with no psychiatric hospitalization history intoxicated with: Heroi, Xanax and Nicotine Substance Abuse History: - Smoking Cessation. Smoking history: Current some day smoker. Have you smoked in the past 12 months: Yes. Aproximately how many cigarettes per day: 6. Cigars Per Day: 0. Hx Chewing Tobacco Use: No. Initiated information on smoking cessation: Yes. 'Breaking Loose' booklet given : 10/12/16. - Substance & Tx. History. Hx Alcohol Use: No. Hx Substance Use: Yes. Substance Use Type: Heroin, Tranquilizers. Hx Substance Use Treatment: Yes (Detox). - Substances Abused. Heroin. Route: Inhalation. Frequency: Daily. Amount used: 6 bags. Age of first use: 30. Date of Last Use: . Xanax. Route: Oral. Frequency: Daily. Amount used: 6 mg. Age of first use: 30. Date of Last Use: 10/12/16 Medical History: Lumbago Psychiatric History: Denies past psychiatric history Physical/Sexual Abuse/Trauma History: Denies Additional Comment: Observation. Detox Unit Care Protocol Mental Status Exam - Mental Status Exam Cognitive Function: Fair Patient Appearance: Well Groomed Mood: Sad, Withdrawn Affect: Flat Patient Behavior: Sedated Speech Pattern: Delayed Voice Loudness: Moderately Soft/Quiet Thought Process: Circumstantial Thought Disorder: Being Controlled Hallucinations: Denies Suicidal Ideation: Denies Homicidal Ideation: Denies Insight/Judgement: Fair Sleep: Difficulty falling asleep Appetite: Fair Muscle strength/Tone: Mild Hypotonicity Gait/Station: Shuffling Additional Comments: Observation. Detox Unit Care Protocol Psychiatric Findings - Problem List ([place] 1, 2,3) (1) Nicotine dependence Current Visit: Yes Status: Acute Qualifiers: Nicotine product type: cigarettes Substance use status: in withdrawal Qualified Code(s): F17.213 - Nicotine dependence, cigarettes, with withdrawal (2) Opioid dependence with withdrawal Current Visit: Yes Status: Acute (3) Sedative, hypnotic or anxiolytic dependence with withdrawal, uncomplicated Current Visit: Yes Status: Acute (4) Opioid-induced sleep disorder, insomnia type, with onset during discontinuation/withdrawal Current Visit: No Status: Acute (5) Substance induced mood disorder Current Visit: No Status: Acute - Initial Treatment Plan Initial Treatment Plan: Observation. Detox Unit Care Protocol
[2016-10-13] MEDS ORDERED: CYCLOBENZAPRINE HCL 10 MG TABLET (FP) PO PRN (18:41)
[2016-10-13] MEDS: diphenhydrAMINE HCL 50 MG CAPSULE PO PRN (22:49)
[2016-10-13] MEDS: THIAMINE HCL 100 MG TABLET (FP) PO SCH (22:49)
[2016-10-14 09:56] VITALS: BP 115/76; PULSE 60; TEMP 98.2
[2016-10-14] MEDS ORDERED: diazePAM 5 MG TABLET PO SCH (10:00)
[2016-10-14] MEDS ORDERED: METHADONE HCL 5 MG TABLET (FOR DETOX USE ONLY) PO SCH (10:00)
[2016-10-14] MEDS: PRENATAL VITAMINS W/ FOLIC ACID TABLET (FP) PO SCH (10:36)
[2016-10-14] MEDS: NICOTINE 14 MG/24 HOURS TOPICAL PATCH TD SCH (10:36)
--- NOTE | 2016-10-14 12:43 | DS ---
[facility] Detox Discharge Summary Admission Date: 10/12/16 Discharge Date: 10/14/16 - History Present History: Opioid Dependence, Sedative Dependence Additional Comments: PT DECLINED TO CONTINUE WITH DETOX STATING TO HIS NURSE "I JUST WANNA GET OUT OF HERE". AND TO ANOTHER, "YOU ARE NOT GIVING ME ENOUGH MED". ALL EFFORTS TO ASSIST PT BE COMFORTABLE AND COMPLETE TREATMENT FAILED. ALERT O X 3. NAD. Pertinent Past History: HX LUMBER SPINE SX DUE TO FALL TRUAMA - Physical Exam Results Vital Signs: Vital Signs Temperature 98.2 F 10/14/16 09:55 Pulse Rate 60 10/14/16 09:55 Respiratory Rate 18 10/14/16 09:55 Blood Pressure 115/76 10/14/16 09:55 O2 Sat by Pulse Oximetry (%) Pertinent Admission Physical Exam Findings: WITHDRAWAL SX Laboratory Last Values WBC 5.9 K/mm3 (4.0-10.0) 10/13/16 07:30 RBC 4.70 M/mm3 (4.00-5.60) 10/13/16 07:30 Hgb 13.3 GM/dL (11.7-16.9) 10/13/16 07:30 Hct 40.2 % (35.4-49) 10/13/16 07:30 MCV 85.4 fl (80-96) 10/13/16 07:30 MCH 28.3 pg (25.7-33.7) 10/13/16 07:30 MCHC 33.1 g/dl (32.0-35.9) 10/13/16 07:30 RDW 14.4 % (11.9-15.9) 10/13/16 07:30 Plt Count 231 K/MM3 (134-434) D 10/13/16 07:30 MPV 9.5 fl (7.5-11.1) 10/13/16 07:30 Sodium 139 mmol/L (136-145) 10/13/16 07:30 Potassium 4.7 mmol/L (3.5-5.1) 10/13/16 07:30 Chloride 104 mmol/L (98-107) 10/13/16 07:30 Carbon Dioxide 30 mmol/L (21-32) 10/13/16 07:30 Anion Gap 5 (8-16) L 10/13/16 07:30 BUN 12 mg/dL (7-18) D 10/13/16 07:30 Creatinine 0.7 mg/dL (0.7-1.3) 10/13/16 07:30 Creat Clearance w eGFR > 60 (>60) 10/13/16 07:30 Random Glucose 89 mg/dL (74-106) 10/13/16 07:30 Calcium 9.2 mg/dL (8.5-10.1) 10/13/16 07:30 Total Bilirubin 0.6 mg/dL (0.2-1.0) 10/13/16 07:30 AST 12 U/L (15-37) L 10/13/16 07:30 ALT 30 U/L (12-78) D 10/13/16 07:30 Alkaline Phosphatase 97 U/L (45-117) 10/13/16 07:30 Total Protein 6.6 g/dl (6.4-8.2) 10/13/16 07:30 Albumin 3.6 g/dl (3.4-5.0) 10/13/16 07:30 Urine Color Yellow 10/12/16 21:30 Urine Appearance Clear 10/12/16 21:30 Urine pH 8.0 (5.0-8.0) D 10/12/16 21:30 Ur Specific [place] 1.020 (1.005-1.025) 10/12/16 21:30 Urine Protein Negative (NEGATIVE) 10/12/16 21:30 Urine Glucose (UA) Negative (NEGATIVE) 10/12/16 21:30 Urine Ketones Negative (NEGATIVE) 10/12/16 21:30 Urine Blood Negative (NEGATIVE) 10/12/16 21:30 Urine Nitrite Negative (NEGATIVE) 10/12/16 21:30 Urine Bilirubin Negative (NEGATIVE) 10/12/16 21:30 Urine Urobilinogen Negative mg/dL (0.2-1.0) 10/12/16 21:30 Ur Leukocyte Esterase Negative (NEGATIVE) 10/12/16 21:30 RPR Titer Nonreactive (NONREACTIVE) 10/13/16 07:30 - Treatment Hospital Course: Discharged Condition Good - Medication Discharge Medications: Ambulatory Orders NK [No Known Home Medication] 10/14/16 - Diagnosis (1) Nicotine dependence Current Visit: Yes Status: Acute Qualifiers: Nicotine product type: cigarettes Substance use status: in withdrawal Qualified Code(s): F17.213 - Nicotine dependence, cigarettes, with withdrawal (2) Opioid dependence with withdrawal Current Visit: Yes Status: Acute (3) Sedative, hypnotic or anxiolytic dependence with withdrawal, uncomplicated Current Visit: Yes Status: Acute (4) Status post spinal surgery Current Visit: Yes Status: Resolved - AMA Did Patient Leave Against Medical Advice: Yes (AMA)
[2016-10-16] MEDS ORDERED: diazePAM 5 MG TABLET PO SCH (10:00)
[2016-10-16] MEDS ORDERED: METHADONE HCL 10 MG TABLET (FOR DETOX USE ONLY) PO SCH (10:00)
[2016-10-17] MEDS ORDERED: METHADONE HCL 5 MG TABLET (FOR DETOX USE ONLY) PO SCH (06:00)
== END 2016-10-14 12:20 | disposition left against medical advice (07) | DRG 770 ==
LOC: YASAS 13:41 → Y3N 17:24
PROVIDERS: ADMIT Internal Medicine; ATTEND Internal Medicine
PROC: HZ2ZZZZ Detoxification Services for Substance Abuse Treatment (ICD-10-PCS; principal; 2016-10-12)
DX: F11.23 Opioid dependence with withdrawal (principal); F11.282 Opioid dependence with opioid-induced sleep disorder; F13.230 Sedative, hypnotic or anxiolytic dependence with withdrawal, uncomplicated; F17.210 Nicotine dependence, cigarettes, uncomplicated; F19.24 Other psychoactive substance dependence with psychoactive substance-induced mood disorder; Z98.890 Other specified postprocedural states
CPT/HCPCS: 36415; 80053; 81003; 85027; 86593; 93005; 93010

== ENCOUNTER 2017-11-30 11:11 | Inpatient (IN) | payer OTHER ==
[2017-11-30 11:36] VITALS: BMI 30.4
--- NOTE | 2017-11-30 13:17 | HP ---
COWS - Scale Resting Pulse: 1= RI 81-100 Sweatin= Chills/Flushing Restless Observation: 0= Sits Still Pupil Size: 0= Normal to Room Light Bone or Joint Aches: 2= Severe Diffuse Aches Runny Nose/ Eye Tearin= None GI Upset > 30mins: 1= Stomach Cramp Tremor Observation: 0= None Yawning Observation: 0= None Anxiety or Irritability: 1=Feels Anxious/Irritable Goose Flesh Skin: 0=Smooth Skin COWS Score: 6 Admission ROS [facility] Allergies/Adverse Reactions: Allergies Allergy/AdvReac Type Severity Reaction Status Date / Time No Known Allergies Allergy Verified 11/30/17 14:51 History of Present Illness: patient here requesting detox from heroin and xanax use , heroin use : 2 yrs , started w/ rx Percocet after surgical interventions to the spine (2014,2015) , denies ivdu , current daily use 8 bags/day , latest use this morning , currently reports chills , nausea , TAM , bodyaches , restlessness xanax : 2 x 2 mg /day , 1 1 /2 yrs , denies rx . denies w/d seizures , blackouts , denies OD previous tx episode 7 mo ago , relapsed 2 weeks ago . utox : + estella , + fen, + opi, + bzo cocaine : reports intermittent use , cocaine " not so much " fentanyl - denies use etoh - 2-3 beers/day , not daily use , denies tremors , blackouts , denies falls , denies drinking in the mornings tobacco : 4 cigs / day , denies nrt pmhx : denies pshx : c & L-spine surgery s/p slip and fall in apt building 2013 psych : denies meds : denies allergies : denies denies driving after use lives w/ mother and sister , who are aware of pt 's presence in [place] and supportive of his recovery 1 child age 13 lives w/ bio mother in [place] unemployed . Exam Limitations: No Limitations - Ebola screening Have you traveled outside of the country in the last 21 days: No Have you had contact with anyone from an Ebola affected area: No Have you been sick,other than usual withdrawal symptoms: No Do you have a fever: No - Review of Systems Constitutional: Chills, Loss of Appetite EENT: reports: Other (right eye subconjunctival hemorrhage x 1 d) Respiratory: reports: No Symptoms reported Cardiac: reports: No Symptoms Reported GI: reports: Nausea : reports: No Symptoms Reported Musculoskeletal: reports: No Symptoms Reported Integumentary: reports: No Symptoms Reported Neuro: reports: Headache Endocrine: reports: No Symptoms Reported Hematology: reports: No Symptoms Reported Psychiatric: reports: No Sypmtoms Reported, Judgement Intact, Orientated x3 Other Systems: Reviewed and Negative Patient History - Patient Medical History Hx Anemia: No Hx Asthma: No Hx Chronic Obstructive Pulmonary Disease (COPD): No Hx Cancer: No Hx Cardiac Disorders: No Hx Congestive Heart Failure: No Hx Hypertension: No Hx Hypercholesterolemia: No Hx Pacemaker: No HX Cerebrovascular Accident: No Hx Seizures: No Hx Dementia: No Hx Diabetes: No Hx Gastrointestinal Disorders: No Hx Liver Disease: No Hx Genitourinary Disorders: No Hx Sexually Transmitted Disorders: No Hx Renal Disease (ESRD): No Hx Thyroid Disease: No Hx Human Immunodeficiency Virus (HIV): No Hx Hepatitis C: No Hx Depression: Yes Hx Suicide Attempt: No Hx Bipolar Disorder: No Hx Schizophrenia: No - Patient Surgical History Past Surgical History: Yes Hx Neurologic Surgery: Yes (lumbar +cervical 2013) Hx Cataract Extraction: No Hx Cardiac Surgery: No Hx Lung Surgery: No Hx Breast Surgery: No Hx Breast Biopsy: No Hx Abdominal Surgery: No Hx Appendectomy: No Hx Cholecystectomy: No Hx Genitourinary Surgery: No Hx Orthopedic Surgery: Yes (LUMBAR SPINE SURGERY 06/2015 RELATED TO FALL) Anesthesia Reaction: No - PPD History Date: 05/19/17 Results: 0 mm - Smoking Cessation Smoking history: Current every day smoker Have you smoked in the past 12 months: Yes Aproximately how many cigarettes per day: 4 Cigars Per Day: 0 Hx Chewing Tobacco Use: No Initiated information on smoking cessation: No - Substances Abused Heroin Route: Inhalation Frequency: Daily Amount used: 4 bags Age of first use: 30 Date of Last Use: 11/30/17 Xanax Route: Oral Frequency: Daily Amount used: 2 mg. Age of first use: 30 Date of Last Use: 11/29/17 Family Disease History - Family Disease History Family History: Denies Admission Physical Exam BHS - Vital Signs Vital Signs: Vital Signs - 24 hr 11/30/17 11:25 Temperature 97.7 F Pulse Rate 87 Respiratory 19 Rate Blood Pressure 127/71 - Physical General Appearance: Yes: Within Normal Limits, No Apparent Distress, Nourished, Appropriately Dressed HEENTM: Yes: Within Normal Limits, EOMI, Hearing grossly Normal, Normal ENT Inspection, Normocephalic, Normal Voice, WALKER, Pharynx Normal, Tm's normal, Other (right subconjunctiva hemorrhage outer lower quadrant , small) Respiratory: Yes: Within Normal Limits, Chest Non-Tender, Lungs Clear, Normal Breath Sounds, No Respiratory Distress, No Accessory Muscle Use Neck: Yes: Within Normal Limits, No masses,lesions,Nodules, Trachea in good position Cardiology: Yes: Within Normal Limits, Regular Rhythm, Regular Rate, Tachycardia Abdominal: Yes: Within Normal Limits, Normal Bowel Sounds, Non Tender, Flat, Soft Back: Yes: Within Normal Limits, Normal Inspection Musculoskeletal: Yes: Within Normal Limits, full range of Motion, Gait Steady, Pelvis Stable Extremities: Yes: Within Normal Limits, Normal Capillary Refill, Normal Inspection, Normal Range of Motion, Non-Tender Neurological: Yes: Within Normal Limits, Fully Oriented, Alert, Motor Strength 5 /5, Normal Mood/Affect, Normal Response Integumentary: Yes: Within Normal Limits, Normal Color, Dry, Warm BHS Breath Alcohol Content Breath Alcohol Content: 0 Urine Drug Screen - Results Drug Screen Negative: No Urine Drug Screen Results: ESTELLA-Cocaine, OPI-Opiates, BZO-Benzodiazepines, FEN- Fentanyl
[2017-11-30] MEDS ORDERED: IBUPROFEN 400 MG TABLET (FP) PO PRN (13:26)
[2017-11-30] MEDS ORDERED: ACETAMINOPHEN 325 MG TABLET (FP) PO PRN (13:26)
[2017-11-30] MEDS ORDERED: MAG HYDROX/AL HYDROX/SIMETH 30 ML UNIT-DOSE CUP PO PRN (13:26)
[2017-11-30] MEDS ORDERED: MAGNESIUM HYDROX 2400MG/30ML ORAL SUSPENSION 30 ML CUP PO PRN (13:26)
[2017-11-30] MEDS ORDERED: MAGNESIUM CITRATE 300 ML BOTTLE PO PRN (13:26)
[2017-11-30] MEDS ORDERED: diazePAM 5 MG TABLET PO PRN (13:26)
[2017-11-30] MEDS ORDERED: diazePAM 5 MG TABLET PO SCH (14:00)
[2017-11-30] MEDS ORDERED: hydrOXYzine PAMOATE 25 MG CAPSULE (FP) PO PRN (15:09)
[2017-11-30] MEDS ORDERED: METHADONE HCL 10 MG TABLET (FOR DETOX USE ONLY) PO ONE ×2 (15:45→23:00)
[2017-11-30] MEDS: diazePAM 5 MG TABLET PO SCH ×2 (19:57→23:48)
[2017-11-30] MEDS ORDERED: THIAMINE HCL 100 MG TABLET (FP) PO SCH (22:00)
[2017-11-30] MEDS ORDERED: MELATONIN 5 MG TABLETS PO PRN (22:00)
[2017-12-01 03:29] LABS: URINE APPEARANCE TURBID; URINE BILIRUBIN NEGATIVE (<2.0 mg/dL); URINE COLOR YELLOW; URINE GLUCOSE (UA) NEGATIVE (NEGATIVE); URINE KETONE NEGATIVE (NEGATIVE); URINE LEUK ESTERASE NEGATIVE (NEGATIVE); URINE NITRITE NEGATIVE (NEGATIVE); URINE PROTEIN NEGATIVE (NEGATIVE); URINE UROBILINOGEN NEGATIVE mg/dL (0.2-1.0)
[2017-12-01] MEDS: diazePAM 5 MG TABLET PO SCH ×2 (05:30→13:46)
--- NOTE | 2017-12-01 08:01 | EKG ---
Test Reason : Blood Pressure : / mmHG Vent. Rate : 066 BPM Atrial Rate : 066 BPM P-R Int : 138 ms QRS Dur : 094 ms QT Int : 392 ms P-R-T Axes : -04 083 044 degrees QTc Int : 410 ms NORMAL SINUS RHYTHM WITH SINUS ARRHYTHMIA NORMAL ECG WHEN COMPARED WITH ECG OF 17-MAY-2017 17:59, NO SIGNIFICANT CHANGE WAS FOUND Confirmed by KIKI ODOM MD ([id number]) on 12/01/2017 8:01:08 AM Referred By: Confirmed By:KIKI ODOM MD
[2017-12-01] MEDS ORDERED: PRENATAL VITAMINS W/ FOLIC ACID TABLET (FP) PO SCH (10:00)
[2017-12-01] MEDS ORDERED: METHADONE HCL 10 MG TABLET (FOR DETOX USE ONLY) PO SCH (10:00)
[2017-12-01 10:21] LABS: HEMATOCRIT 40.5 % (35.4-49); HEMOGLOBIN 13.5 GM/dL (11.7-16.9); MCH 28.5 pg (25.7-33.7); MCHC 33.4 g/dl (32.0-35.9); MEAN CELL VOLUME 85.2 fl (80-96); MEAN PLT VOLUME 9.7 fl (7.5-11.1); PLATELET COUNT 285 K/MM3 (134-434); RBC 4.76 M/mm3 (4.00-5.60); RDW 13.9 % (11.9-15.9); WHITE BLOOD COUNT 7.3 K/mm3 (4.0-10.0)
[2017-12-01 10:39] LABS: ALBUMIN 4.1 g/dl (3.4-5.0); ALK PHOS 101 U/L (45-117); ANION GAP 9 MMOL/L (8-16); BILIRUBIN,TOTAL 0.3 mg/dL (0.2-1); BLOOD UREA NITROGEN 16 mg/dL (7-18); CALCIUM 9.9 mg/dL (8.5-10.1); CHLORIDE 104 mmol/L (98-107); CO2 26 mmol/L (21-32); CREATININE 0.8 mg/dL (0.55-1.3); GLUCOSE,RANDOM 90 mg/dL (74-106); POTASSIUM 4.9 mmol/L (3.5-5.1); SGOT/AST 32 U/L (15-37); SGPT/ALT 45 U/L (13-61); SODIUM 139 mmol/L (136-145); TOT PROT 7.6 g/dl (6.4-8.2)
--- NOTE | 2017-12-01 12:24 | PN ---
BHS COWS - Scale Resting Pulse: 0= ND 80 or Below Sweatin=Flushed/Facial Moisture Restless Observation: 3= Extraneous Movement Pupil Size: 2= Moderately Dilated Bone or Joint Aches: 1= Mild Discomfort Runny Nose/ Eye Tearin= None GI Upset > 30mins: 0= None Tremor Observation of Outstretched Hands: 1= Tremor [place], Not Seen Yawning Observation: 1= 1-2x During Session Anxiety or Irritability: 2=Irritable/Anxious Goose Flesh Skin: 0=Smooth Skin COWS Score: 12 BHS Progress Note (SOAP) Subjective: IRRITABILITY, ANXIETY, SWEATS, CHILLS. Objective: 12/01/17 12:23 Vital Signs 12/01/17 12/01/17 06:16 09:55 Temperature 97.4 F L 97.6 F Pulse Rate 63 80 Respiratory 18 20 Rate Blood Pressure 105/66 110/66 Laboratory Tests 11/30/17 12/01/17 12/01/17 15:20 06:00 06:00 WBC 7.3 RBC 4.76 Hgb 13.5 Hct 40.5 MCV 85.2 MCH 28.5 MCHC 33.4 RDW 13.9 Plt Count 285 MPV 9.7 Sodium 139 Potassium 4.9 Chloride 104 Carbon Dioxide 26 Anion Gap 9 BUN 16 Creatinine 0.8 Creat Clearance w eGFR > 60 Random Glucose 90 Calcium 9.9 Total Bilirubin 0.3 AST 32 ALT 45 Alkaline Phosphatase 101 Total Protein 7.6 Albumin 4.1 Urine Color Yellow Urine Appearance Turbid Urine pH 5.0 Ur Specific [place] 1.025 Urine Protein Negative Urine Glucose (UA) Negative Urine Ketones Negative Urine Blood Negative Urine Nitrite Negative Urine Bilirubin Negative Urine Urobilinogen Negative Ur Leukocyte Esterase Negative Assessment: 12/01/17 12:23 WITHDRAWAL SX Plan: CONTINUE DETOX INCREASE PO FLUIDS
[2017-12-01 17:31] VITALS: BP 100/60; PULSE 72; TEMP 97.4
--- NOTE | 2017-12-01 19:30 | PN ---
[facility] Progress Note Note: Patient alert and oriented x 3. Gait steady. Patient discussed Suboxone use and questioned when the methadone would be out of system. Patient states that prior to admission he had been using un- prescribed pieces of Suboxone to manage opiate use disorder. Patient encouraged to consider see a provider, when gets back home, to legally prescribe Suboxone. Overdose risks and prevention discussed. Patient is leaving AMA.
--- NOTE | 2017-12-01 19:31 | DS ---
[facility] Detox Discharge Summary Admission Date: 11/30/17 Discharge Date: 12/01/17 - History Present History: Opioid Dependence Additional Comments: Patient admitted w/ c/o opiate use withdrawal symptoms. 2 year hx heroin use disorder w/ intermittent use of cocaine and benzo's. - Physical Exam Results Vital Signs: Vital Signs Temperature 97.4 F L 12/01/17 17:28 Pulse Rate 72 12/01/17 17:28 Respiratory Rate 16 12/01/17 17:28 Blood Pressure 100/60 12/01/17 17:28 O2 Sat by Pulse Oximetry (%) Pertinent Admission Physical Exam Findings: Patient admitted with withdrawal symptoms. Laboratory Tests 11/30/17 12/01/17 12/01/17 15:20 06:00 06:00 WBC 7.3 RBC 4.76 Hgb 13.5 Hct 40.5 MCV 85.2 MCH 28.5 MCHC 33.4 RDW 13.9 Plt Count 285 MPV 9.7 Sodium 139 Potassium 4.9 Chloride 104 Carbon Dioxide 26 Anion Gap 9 BUN 16 Creatinine 0.8 Creat Clearance w eGFR > 60 Random Glucose 90 Calcium 9.9 Total Bilirubin 0.3 AST 32 ALT 45 Alkaline Phosphatase 101 Total Protein 7.6 Albumin 4.1 Urine Color Yellow Urine Appearance Turbid Urine pH 5.0 Ur Specific [place] 1.025 Urine Protein Negative Urine Glucose (UA) Negative Urine Ketones Negative Urine Blood Negative Urine Nitrite Negative Urine Bilirubin Negative Urine Urobilinogen Negative Ur Leukocyte Esterase Negative RPR Titer 12/01/17 06:00 WBC RBC Hgb Hct MCV MCH MCHC RDW Plt Count MPV Sodium Potassium Chloride Carbon Dioxide Anion Gap BUN Creatinine Creat Clearance w eGFR Random Glucose Calcium Total Bilirubin AST ALT Alkaline Phosphatase Total Protein Albumin Urine Color Urine Appearance Urine pH Ur Specific [place] Urine Protein Urine Glucose (UA) Urine Ketones Urine Blood Urine Nitrite Urine Bilirubin Urine Urobilinogen Ur Leukocyte Esterase RPR Titer Nonreactive Labs reviewed. - Treatment Hospital Course: Detox Protocol Followed (patient did not complete detox protocol.) - Medication Discharge Medications: Ambulatory Orders NK [No Known Home Medication] 10/14/16 - Diagnosis (1) Nicotine dependence Status: Acute Qualifiers: Nicotine product type: cigarettes Substance use status: in withdrawal Qualified Code(s): F17.213 - Nicotine dependence, cigarettes, with withdrawal (2) Opioid dependence with withdrawal Status: Acute (3) Sedative, hypnotic or anxiolytic dependence with withdrawal, uncomplicated Status: Acute - AMA Did Patient Leave Against Medical Advice: Yes
[2017-12-02] MEDS ORDERED: METHADONE HCL 5 MG TABLET (FOR DETOX USE ONLY) PO SCH (10:00)
[2017-12-02] MEDS ORDERED: diazePAM 5 MG TABLET PO SCH (10:00)
[2017-12-03] MEDS ORDERED: METHADONE HCL 10 MG TABLET (FOR DETOX USE ONLY) PO SCH (10:00)
[2017-12-04] MEDS ORDERED: METHADONE HCL 5 MG TABLET (FOR DETOX USE ONLY) PO SCH (06:00)
[2017-12-04] MEDS ORDERED: diazePAM 5 MG TABLET PO SCH (10:00)
== END 2017-12-01 19:28 | disposition left against medical advice (07) | DRG 770 ==
LOC: YASAS 11:11 → Y3N 15:31
PROC: HZ2ZZZZ Detoxification Services for Substance Abuse Treatment (ICD-10-PCS; principal; 2017-11-30)
DX: F11.23 Opioid dependence with withdrawal (principal); F13.230 Sedative, hypnotic or anxiolytic dependence with withdrawal, uncomplicated; F17.210 Nicotine dependence, cigarettes, uncomplicated
CPT/HCPCS: 36415; 80053; 81003; 85027; 86593; 93005; 93010

== ENCOUNTER 2018-01-01 11:13 | Inpatient (IN) | payer OTHER ==
[2018-01-01 12:15] VITALS: BMI 30.7
--- NOTE | 2018-01-01 13:34 | HP ---
COWS - Scale Resting Pulse: 0= [place] 80 or Below Sweatin= Chills/Flushing Restless Observation: 1= Difficult to Sit Still Pupil Size: 1= Pupils >than Normal Bone or Joint Aches: 2= Severe Diffuse Aches Runny Nose/ Eye Tearin= Runny Nose/Eyes GI Upset > 30mins: 2= Nausea/Diarrhea Tremor Observation: 2= Slight Tremor Visible Yawning Observation: 2= >3x During Session Anxiety or Irritability: 2=Irritable/Anxious Goose Flesh Skin: 0=Smooth Skin COWS Score: 15 Admission ROS S - HPI Chief Complaint: ined help to stop using heroin and xanax Allergies/Adverse Reactions: Allergies Allergy/AdvReac Type Severity Reaction Status Date / Time No Known Allergies Allergy Verified 01/01/18 13:06 History of Present Illness: this 32 years old male with heroin and xanax dependence,seeking detox, withdrawal symptom,last detox 11/30/17 to 12/01/17 not completed nicotine dependence insomnia multiple admissions in detox but keep relapsing Exam Limitations: No Limitations - Ebola screening Have you traveled outside of the country in the last 21 days: No Have you had contact with anyone from an Ebola affected area: No Have you been sick,other than usual withdrawal symptoms: No - Review of Systems Constitutional: Chills, Loss of Appetite, Malaise, Night Sweats, Changes in sleep, Weakness, Unintentional Wgt. Loss EENT: reports: Tearing, Nose Congestion Respiratory: reports: No Symptoms reported Cardiac: reports: No Symptoms Reported GI: reports: Diarrhea, Nausea, Vomiting, Abdominal cramping : reports: No Symptoms Reported Musculoskeletal: reports: Back Pain, Muscle Pain, Neck Pain Integumentary: reports: Dryness Neuro: reports: Headache, Tremors Endocrine: reports: No Symptoms Reported Hematology: reports: No Symptoms Reported Psychiatric: reports: No Sypmtoms Reported, Mood/Affect Appropiate, Orientated x3 (insomnia) Patient History - Patient Medical History Hx Anemia: No Hx Asthma: No Hx Chronic Obstructive Pulmonary Disease (COPD): No Hx Cancer: No Hx Cardiac Disorders: No Hx Congestive Heart Failure: No Hx Hypertension: No Hx Hypercholesterolemia: No Hx Pacemaker: No HX Cerebrovascular Accident: No Hx Seizures: No Hx Dementia: No Hx Diabetes: No Hx Gastrointestinal Disorders: No Hx Liver Disease: No Hx Genitourinary Disorders: No Hx Sexually Transmitted Disorders: No Hx Renal Disease (ESRD): No Hx Thyroid Disease: No Hx Human Immunodeficiency Virus (HIV): No (last 2017 negative) Hx Hepatitis C: No Hx Depression: No Hx Suicide Attempt: No Hx Bipolar Disorder: No Hx Schizophrenia: No Other Medical History: no suicidal,no homicidal - Patient Surgical History Past Surgical History: Yes Hx Neurologic Surgery: Yes (lumbar +cervical ) Hx Cataract Extraction: No Hx Cardiac Surgery: No Hx Lung Surgery: No Hx Breast Surgery: No Hx Breast Biopsy: No Hx Abdominal Surgery: No Hx Appendectomy: No Hx Cholecystectomy: No Hx Genitourinary Surgery: No Hx Orthopedic Surgery: Yes (herniated disk, back and neck) Anesthesia Reaction: No - PPD History Previous Implant?: Yes Documented Results: Negative w/proof Implanted On Prior [facility] Admission?: Yes Date: 05/19/17 Results: 0 mm PPD to be Administered?: No - Smoking Cessation Smoking history: Current every day smoker Have you smoked in the past 12 months: Yes Aproximately how many cigarettes per day: 4 Cigars Per Day: 0 Hx Chewing Tobacco Use: No Initiated information on smoking cessation: Yes 'Breaking Loose' booklet given: 01/01/18 - Substance & Tx. History Hx Alcohol Use: No Hx Substance Use: Yes Substance Use Type: Heroin, Tranquilizers Hx Substance Use Treatment: Yes ([facility] 11/30/17 to 12/01/17 not completed) - Substances Abused Heroin Route: Inhalation Frequency: Daily Amount used: 4 bags Age of first use: 30 Date of Last Use: 01/01/18 Xanax Route: Oral Frequency: Daily Amount used: 4 mg. Age of first use: 30 Date of Last Use: 01/01/18 Family Disease History - Family Disease History Family History: Denies Admission Physical Exam BHS - Vital Signs Vital Signs: Vital Signs - 24 hr 01/01/18 12:07 Temperature 97 F L Pulse Rate 74 Respiratory 18 Rate Blood Pressure 120/74 - Physical General Appearance: Yes: Moderate Distress, Tremorous, Irritable, Sweating, Anxious HEENTM: Yes: Normal ENT Inspection, WALKER, Pharynx Normal Respiratory: Yes: Within Normal Limits, Lungs Clear, Normal Breath Sounds Neck: Yes: Within Normal Limits, Supple, Trachea in good position Breast: Yes: Within Normal Limits Cardiology: Yes: Within Normal Limits, Regular Rhythm, Regular Rate, S1, S2 Abdominal: Yes: Within Normal Limits, Normal Bowel Sounds, Soft Genitourinary: Yes: Within Normal Limits Back: Yes: Muscle Spasm Musculoskeletal: Yes: full range of Motion, Back pain, Muscle Pain Extremities: Yes: Normal Range of Motion, Tremors Neurological: Yes: geriatrics physician II-XII NML intact, Alert Integumentary: Yes: Dry Lymphatic: Yes: Within Normal Limits - Diagnostic (1) Opioid dependence with withdrawal Current Visit: No Status: Acute (2) Uncomplicated sedative, hypnotic or anxiolytic withdrawal Current Visit: Yes Status: Acute (3) Insomnia Current Visit: No Status: Acute (4) Nicotine dependence Current Visit: No Status: Acute Qualifiers: Nicotine product type: cigarettes Substance use status: in withdrawal Qualified Code(s): F17.213 - Nicotine dependence, cigarettes, with withdrawal (5) Low back pain Current Visit: Yes Status: Acute (6) History of back surgery Current Visit: Yes Status: Acute (7) History of neck surgery Current Visit: Yes Status: Acute Cleared for Admission [facility] - Detox or Rehab [facility] Level of Care: Medically Managed Detox Regimen/Protocol: Methadone/Valium [facility] Breath Alcohol Content Breath Alcohol Content: 0 Urine Drug Screen - Results Drug Screen Negative: No Urine Drug Screen Results: OPI-Opiates, BZO-Benzodiazepines, FEN-Fentanyl
[2018-01-01] MEDS ORDERED: MAG HYDROX/AL HYDROX/SIMETH 30 ML UNIT-DOSE CUP PO PRN (13:44)
[2018-01-01] MEDS ORDERED: IBUPROFEN 400 MG TABLET (FP) PO PRN (13:44)
[2018-01-01] MEDS ORDERED: ACETAMINOPHEN 325 MG TABLET (FP) PO PRN (13:44)
[2018-01-01] MEDS ORDERED: MAGNESIUM CITRATE 300 ML BOTTLE PO PRN (13:44)
[2018-01-01] MEDS ORDERED: guaiFENesin/D-METHORPHAN HB 10 ML UNIT-DOSE CUPS PO PRN (13:44)
[2018-01-01] MEDS ORDERED: P-EPHED 60MG/TRIPROLIDI 2.5MG TABLET PO PRN (13:44)
[2018-01-01] MEDS ORDERED: diazePAM 5 MG TABLET PO PRN (13:44)
[2018-01-01] MEDS ORDERED: MENTHOL/PHENOL 1 EACH UD MM PRN (13:44)
[2018-01-01] MEDS ORDERED: MAGNESIUM HYDROX 2400MG/30ML ORAL SUSPENSION 30 ML CUP PO PRN (13:44)
[2018-01-01] MEDS ORDERED: LOPERAMIDE HCL 2 MG CAPSULE PO PRN (13:44)
[2018-01-01] MEDS ORDERED: METHADONE HCL 10 MG TABLET (FOR DETOX USE ONLY) PO ONE ×2 (14:30→23:00)
[2018-01-01] MEDS ORDERED: diazePAM 5 MG TABLET PO ONE (14:30)
[2018-01-01] MEDS: cloNIDine HCL 0.1 MG TABLET PO SCH (22:26)
[2018-01-01] MEDS: CYCLOBENZAPRINE HCL 10 MG TABLET (FP) PO PRN (22:26)
[2018-01-01] MEDS: diazePAM 5 MG TABLET PO SCH (22:26)
[2018-01-01] MEDS: THIAMINE HCL 100 MG TABLET (FP) PO SCH (22:26)
[2018-01-02] MEDS: diazePAM 5 MG TABLET PO SCH ×3 (05:58→22:14)
[2018-01-02] MEDS ORDERED: METHADONE HCL 10 MG TABLET (FOR DETOX USE ONLY) PO SCH (10:00)
[2018-01-02 10:20] LABS: HEMOGLOBIN 13.3 GM/dL (11.7-16.9); MCH 27.9 pg (25.7-33.7); MCHC 32.6 g/dl (32.0-35.9); MEAN CELL VOLUME 85.8 fl (80-96); MEAN PLT VOLUME 10.5 fl (7.5-11.1); PLATELET COUNT 265 K/MM3 (134-434); RBC 4.78 M/mm3 (4.00-5.60); RDW 14.1 % (11.9-15.9); WHITE BLOOD COUNT 7.9 K/mm3 (4.0-10.0)
[2018-01-02] MEDS: cloNIDine HCL 0.1 MG TABLET PO SCH ×2 (10:44→22:14)
[2018-01-02] MEDS: CYCLOBENZAPRINE HCL 10 MG TABLET (FP) PO PRN ×2 (10:44→22:15)
[2018-01-02] MEDS: PRENATAL VITAMINS W/ FOLIC ACID TABLET (FP) PO SCH (10:44)
[2018-01-02 11:10] LABS: ALBUMIN 3.9 g/dl (3.4-5.0); ALK PHOS 100 U/L (45-117); ANION GAP 9 MMOL/L (8-16); BILIRUBIN,TOTAL 0.2 mg/dL (0.2-1); BLOOD UREA NITROGEN 11 mg/dL (7-18); CALCIUM 8.8 mg/dL (8.5-10.1); CHLORIDE 104 mmol/L (98-107); CO2 29 mmol/L (21-32); CREATININE 0.7 mg/dL (0.55-1.3); GLUCOSE,RANDOM 127 mg/dL (74-106); SGOT/AST 13 U/L (15-37); SGPT/ALT 27 U/L (13-61); SODIUM 141 mmol/L (136-145)
--- NOTE | 2018-01-02 11:47 | PN ---
BHS COWS - Scale Resting Pulse: 0= [place] 80 or Below Sweatin=Flushed/Facial Moisture Restless Observation: 1= Difficult to Sit Still Pupil Size: 0= Normal to Room Light Bone or Joint Aches: 2= Severe Diffuse Aches Runny Nose/ Eye Tearin= Nasal Congestion GI Upset > 30mins: 2= Nausea/Diarrhea Tremor Observation of Outstretched Hands: 2= Slight Tremor Visible Yawning Observation: 2= >3x During Session Anxiety or Irritability: 2=Irritable/Anxious Goose Flesh Skin: 0=Smooth Skin COWS Score: 14 BHS Progress Note (SOAP) Subjective: irritable agitation anxiety sweats shakes nausea Objective: 01/02/18 11:46 Vital Signs Temperature 98.4 F 01/02/18 09:34 Pulse Rate 63 01/02/18 09:34 Respiratory Rate 20 01/02/18 09:34 Blood Pressure 101/68 01/02/18 09:34 O2 Sat by Pulse Oximetry (%) Laboratory Tests 01/02/18 01/02/18 05:30 05:30 WBC 7.9 RBC 4.78 Hgb 13.3 Hct 41.0 MCV 85.8 MCH 27.9 MCHC 32.6 RDW 14.1 Plt Count 265 MPV 10.5 Sodium 141 Potassium 4.0 Chloride 104 Carbon Dioxide 29 Anion Gap 9 BUN 11 Creatinine 0.7 Creat Clearance w eGFR > 60 Random Glucose 127 H Calcium 8.8 Total Bilirubin 0.2 AST 13 L ALT 27 Alkaline Phosphatase 100 Total Protein 7.0 Albumin 3.9 rest of labs pending aaox3 ambulating no acute distress Assessment: 01/02/18 11:47 withdrawal sx Plan: continue detox increase fluids
--- NOTE | 2018-01-02 13:01 | EKG ---
Test Reason : Blood Pressure : / mmHG Vent. Rate : 060 BPM Atrial Rate : 060 BPM P-R Int : 122 ms QRS Dur : 102 ms QT Int : 390 ms P-R-T Axes : -14 144 138 degrees QTc Int : 390 ms NORMAL SINUS RHYTHM LEFT POSTERIOR FASCICULAR BLOCK ABNORMAL ECG Confirmed by MD PETER, MAGDALENA ([id number]) on 01/02/2018 1:00:25 PM Referred By: Confirmed By:MAGDALENA GREEN MD
[2018-01-02 16:34] LABS: URINE APPEARANCE CLEAR; URINE BILIRUBIN NEGATIVE (<2.0 mg/dL); URINE COLOR STRAW; URINE GLUCOSE (UA) NEGATIVE (NEGATIVE); URINE KETONE NEGATIVE (NEGATIVE); URINE LEUK ESTERASE NEGATIVE (NEGATIVE); URINE NITRITE NEGATIVE (NEGATIVE); URINE PROTEIN NEGATIVE (NEGATIVE); URINE UROBILINOGEN NEGATIVE mg/dL (0.2-1.0)
[2018-01-02] MEDS: THIAMINE HCL 100 MG TABLET (FP) PO SCH (22:14)
[2018-01-03] MEDS: PRENATAL VITAMINS W/ FOLIC ACID TABLET (FP) PO SCH (10:18)
[2018-01-03] MEDS: METHADONE HCL 5 MG TABLET (FOR DETOX USE ONLY) PO SCH (10:19)
[2018-01-03] MEDS: diazePAM 5 MG TABLET PO SCH ×2 (10:19→22:05)
[2018-01-03] MEDS: cloNIDine HCL 0.1 MG TABLET PO SCH ×2 (10:19→22:05)
--- NOTE | 2018-01-03 14:00 | PN ---
BHS COWS - Scale Resting Pulse: 1= [place] 81-100 Sweatin= Chills/Flushing Restless Observation: 1= Difficult to Sit Still Pupil Size: 1= Pupils >than Normal Bone or Joint Aches: 2= Severe Diffuse Aches Runny Nose/ Eye Tearin= Nasal Congestion GI Upset > 30mins: 1= Stomach Cramp Tremor Observation of Outstretched Hands: 1= Tremor Braggs, Not Seen Yawning Observation: 0= None Anxiety or Irritability: 1=Feels Anxious/Irritable Goose Flesh Skin: 0=Smooth Skin COWS Score: 10 BHS Progress Note (SOAP) Subjective: interrupted sleep, sweats , body aches, feeling withdrawal Objective: 01/03/18 13:59 Vital Signs Temperature 97.3 F L 01/03/18 13:41 Pulse Rate 89 01/03/18 13:41 Respiratory Rate 18 01/03/18 13:41 Blood Pressure 118/74 01/03/18 13:41 O2 Sat by Pulse Oximetry (%) Laboratory Tests 01/02/18 01/02/18 01/02/18 05:30 05:30 05:30 WBC 7.9 RBC 4.78 Hgb 13.3 Hct 41.0 MCV 85.8 MCH 27.9 MCHC 32.6 RDW 14.1 Plt Count 265 MPV 10.5 Sodium 141 Potassium 4.0 Chloride 104 Carbon Dioxide 29 Anion Gap 9 BUN 11 Creatinine 0.7 Creat Clearance w eGFR > 60 Random Glucose 127 H Calcium 8.8 Total Bilirubin 0.2 AST 13 L ALT 27 Alkaline Phosphatase 100 Total Protein 7.0 Albumin 3.9 Urine Color Urine Appearance Urine pH Ur Specific [place] Urine Protein Urine Glucose (UA) Urine Ketones Urine Blood Urine Nitrite Urine Bilirubin Urine Urobilinogen Ur Leukocyte Esterase RPR Titer Nonreactive 01/02/18 10:45 WBC RBC Hgb Hct MCV MCH MCHC RDW Plt Count MPV Sodium Potassium Chloride Carbon Dioxide Anion Gap BUN Creatinine Creat Clearance w eGFR Random Glucose Calcium Total Bilirubin AST ALT Alkaline Phosphatase Total Protein Albumin Urine Color Straw Urine Appearance Clear Urine pH 7.0 D Ur Specific [place] 1.013 Urine Protein Negative Urine Glucose (UA) Negative Urine Ketones Negative Urine Blood Negative Urine Nitrite Negative Urine Bilirubin Negative Urine Urobilinogen Negative Ur Leukocyte Esterase Negative RPR Titer pt aox3 in nad Assessment: 01/03/18 13:59 withdrawal sx's Plan: cont. detox increase fluids clonidine prn
[2018-01-03] MEDS: MELATONIN 5 MG TABLETS PO PRN (22:06)
[2018-01-03] MEDS: THIAMINE HCL 100 MG TABLET (FP) PO SCH (22:06)
[2018-01-04] MEDS: CYCLOBENZAPRINE HCL 10 MG TABLET (FP) PO PRN ×2 (01:17→22:15)
[2018-01-04] MEDS ORDERED: METHADONE HCL 10 MG TABLET (FOR DETOX USE ONLY) PO SCH (10:40)
[2018-01-04] MEDS: PRENATAL VITAMINS W/ FOLIC ACID TABLET (FP) PO SCH (10:52)
[2018-01-04] MEDS: diazePAM 5 MG TABLET PO SCH ×2 (10:53→22:14)
[2018-01-04] MEDS: METHADONE HCL 5 MG TABLET (FOR DETOX USE ONLY) PO SCH (10:53)
[2018-01-04] MEDS: cloNIDine HCL 0.1 MG TABLET PO SCH (10:55)
--- NOTE | 2018-01-04 14:09 | PN ---
BHS Progress Note (SOAP) Subjective: feeling better sleep better at night no tremor less sweat no body ache no joints pain Objective: 01/04/18 14:08 Vital Signs Temperature 97.9 F 01/04/18 13:40 Pulse Rate 73 01/04/18 13:40 Respiratory Rate 20 01/04/18 13:40 Blood Pressure 108/62 01/04/18 13:40 O2 Sat by Pulse Oximetry (%) Laboratory Last Values WBC 7.9 K/mm3 (4.0-10.0) 01/02/18 05:30 RBC 4.78 M/mm3 (4.00-5.60) 01/02/18 05:30 Hgb 13.3 GM/dL (11.7-16.9) 01/02/18 05:30 Hct 41.0 % (35.4-49) 01/02/18 05:30 MCV 85.8 fl (80-96) 01/02/18 05:30 MCH 27.9 pg (25.7-33.7) 01/02/18 05:30 MCHC 32.6 g/dl (32.0-35.9) 01/02/18 05:30 RDW 14.1 % (11.9-15.9) 01/02/18 05:30 Plt Count 265 K/MM3 (134-434) 01/02/18 05:30 MPV 10.5 fl (7.5-11.1) 01/02/18 05:30 Sodium 141 mmol/L (136-145) 01/02/18 05:30 Potassium 4.0 mmol/L (3.5-5.1) 01/02/18 05:30 Chloride 104 mmol/L (98-107) 01/02/18 05:30 Carbon Dioxide 29 mmol/L (21-32) 01/02/18 05:30 Anion Gap 9 MMOL/L (8-16) 01/02/18 05:30 BUN 11 mg/dL (7-18) 01/02/18 05:30 Creatinine 0.7 mg/dL (0.55-1.3) 01/02/18 05:30 Creat Clearance w eGFR > 60 (>60) 01/02/18 05:30 Random Glucose 127 mg/dL (74-106) H 01/02/18 05:30 Calcium 8.8 mg/dL (8.5-10.1) 01/02/18 05:30 Total Bilirubin 0.2 mg/dL (0.2-1) 01/02/18 05:30 AST 13 U/L (15-37) L 01/02/18 05:30 ALT 27 U/L (13-61) 01/02/18 05:30 Alkaline Phosphatase 100 U/L (45-117) 01/02/18 05:30 Total Protein 7.0 g/dl (6.4-8.2) 01/02/18 05:30 Albumin 3.9 g/dl (3.4-5.0) 01/02/18 05:30 Urine Color Straw 01/02/18 10:45 Urine Appearance Clear 01/02/18 10:45 Urine pH 7.0 (5.0-8.0) D 01/02/18 10:45 Ur Specific [place] 1.013 (1.010-1.035) 01/02/18 10:45 Urine Protein Negative (NEGATIVE) 01/02/18 10:45 Urine Glucose (UA) Negative (NEGATIVE) 01/02/18 10:45 Urine Ketones Negative (NEGATIVE) 01/02/18 10:45 Urine Blood Negative (NEGATIVE) 01/02/18 10:45 Urine Nitrite Negative (NEGATIVE) 01/02/18 10:45 Urine Bilirubin Negative (<2.0 mg/dL) 01/02/18 10:45 Urine Urobilinogen Negative mg/dL (0.2-1.0) 01/02/18 10:45 Ur Leukocyte Esterase Negative (NEGATIVE) 01/02/18 10:45 RPR Titer Nonreactive (NONREACTIVE) 01/02/18 05:30 lab noted Assessment: 01/04/18 14:09 mild withdrawal sx Plan: medically supervised detox
[2018-01-04] MEDS: MELATONIN 5 MG TABLETS PO PRN (22:13)
[2018-01-04] MEDS: THIAMINE HCL 100 MG TABLET (FP) PO SCH (22:14)
[2018-01-05] MEDS ORDERED: METHADONE HCL 5 MG TABLET (FOR DETOX USE ONLY) PO SCH (06:00)
--- NOTE | 2018-01-05 09:16 | DS ---
[facility] Detox Discharge Summary Admission Date: 01/01/18 Discharge Date: 01/05/18 - History Present History: Cannabis Dependence, Opioid Dependence, Sedative Dependence - Physical Exam Results Vital Signs: Vital Signs Temperature 97.7 F 01/05/18 06:00 Pulse Rate 86 01/05/18 06:00 Respiratory Rate 18 01/05/18 06:00 Blood Pressure 133/70 01/05/18 06:00 O2 Sat by Pulse Oximetry (%) - Treatment Hospital Course: Detox Protocol Followed, Detoxed Safely, Responded well, Discharged Condition Good, Rehab Referral Accepted - Medication Discharge Medications: Ambulatory Orders NK [No Known Home Medication] 10/14/16 - AMA Did Patient Leave Against Medical Advice: No (going home)
[2018-01-05 09:21] VITALS: BP 109/64; PULSE 83; TEMP 97.3
[2018-01-05] MEDS ORDERED: diazePAM 5 MG TABLET PO SCH (10:00)
[2018-01-05] MEDS ORDERED: METHADONE HCL 10 MG TABLET (FOR DETOX USE ONLY) PO SCH (10:00)
[2018-01-06] MEDS ORDERED: METHADONE HCL 5 MG TABLET (FOR DETOX USE ONLY) PO SCH (06:00)
== END 2018-01-05 09:11 | disposition home or self-care (01) | DRG 775 ==
LOC: YASAS 11:13 → Y6N 14:01
PROC: HZ2ZZZZ Detoxification Services for Substance Abuse Treatment (ICD-10-PCS; principal; 2018-01-01)
DX: F10.230 Alcohol dependence with withdrawal, uncomplicated (principal); F13.230 Sedative, hypnotic or anxiolytic dependence with withdrawal, uncomplicated; F17.210 Nicotine dependence, cigarettes, uncomplicated; G47.00 Insomnia, unspecified; M54.5 Low back pain; Z98.890 Other specified postprocedural states
CPT/HCPCS: 36415; 80053; 81003; 85027; 86593; 93005; 93010; J0735

== ENCOUNTER 2018-09-27 17:10 | Inpatient (IN) | payer OTHER ==
[2018-09-27 18:33] VITALS: BMI 32.4
--- NOTE | 2018-09-27 20:45 | HP ---
COWS - Scale Resting Pulse: 2= [place] 101-120 Sweatin=Flushed/Facial Moisture Restless Observation: 1= Difficult to Sit Still Pupil Size: 2= Moderately Dilated Bone or Joint Aches: 2= Severe Diffuse Aches Runny Nose/ Eye Tearin= Runny Nose/Eyes GI Upset > 30mins: 1= Stomach Cramp Tremor Observation: 2= Slight Tremor Visible Yawning Observation: 1= 1-2x During Session Anxiety or Irritability: 1=Feels Anxious/Irritable Goose Flesh Skin: 0=Smooth Skin COWS Score: 16 CIWA Score Nausea/Vomitin Muscle Tremors: 3 Anxiety: 3 Agitation: 3 Paroxysmal Sweats: 3 Orientation: 0-Oriented Tacttile Disturbances: 0-None Auditory Disturbances: 0-None Visual Disturbances: 0-None Headache: 2-Mild CIWA-Ar Total Score: 16 - Admission Criteria [facility] Guidelines: Admission for Medically Managed Detox: Requires at least one of the followin. CIWA greater than 12 2. Seizures within the past 24 hours 3. Delirium tremens within the past 24 hours 4. Hallucinations within the past 24 hours 5. Acute intervention needed for co occurring medical disorder 6. Acute intervention needed for co occurring psychiatric disorder 7. Severe withdrawal that cannot be handled at a lower level of care (continued vomiting, continued diarrhea, abnormal vital signs) requiring intravenous medication and/or fluids 8. Patient presents the following: CIWA greater than 12 Admission Criteria Met: Admission criteria met Admission ROS [facility] Chief Complaint: I NEED TO GET CLEAN Allergies/Adverse Reactions: Allergies Allergy/AdvReac Type Severity Reaction Status Date / Time No Known Allergies Allergy Verified 09/27/18 18:26 History of Present Illness: CHRISSIE BEGAN USING OPIATES 3 Y AGO RX OXY FOR BACK PAIN BECAME PROBLEMATIC AFTER SEVERAL MOS HEROIN USE ENSUED 1 Y AFTER 1 YEAR ABSTINENCE SP INPT BZO USE BEGAN AGE 31 ETOH AGE 17 NOT PROBLMATIC NOW OR INPAST PER REPORT - Ebola screening Have you traveled outside of the country in the last 21 days: No (N) Have you had contact with anyone from an Ebola affected area: No Do you have a fever: No - Review of Systems Constitutional: Chills EENT: reports: Tearing Respiratory: reports: No Symptoms reported Cardiac: reports: No Symptoms Reported GI: reports: No Symptoms Reported : reports: No Symptoms Reported Musculoskeletal: reports: Back Pain Integumentary: reports: No Symptoms Reported Neuro: reports: Headache Endocrine: reports: No Symptoms Reported Hematology: reports: No Symptoms Reported Psychiatric: reports: Anxious Patient History - Patient Medical History Hx Anemia: No Hx Asthma: No Hx Chronic Obstructive Pulmonary Disease (COPD): No Hx Cancer: No Hx Cardiac Disorders: No Hx Congestive Heart Failure: No Hx Hypertension: No Hx Hypercholesterolemia: No Hx Pacemaker: No HX Cerebrovascular Accident: No Hx Seizures: No Hx Dementia: No Hx Diabetes: No Hx Gastrointestinal Disorders: No Hx Liver Disease: No Hx Genitourinary Disorders: No Hx Sexually Transmitted Disorders: No Hx Renal Disease (ESRD): No Hx Thyroid Disease: No Hx Human Immunodeficiency Virus (HIV): No (last 2017 negative) Hx Hepatitis C: No Hx Depression: No Hx Suicide Attempt: No Hx Bipolar Disorder: No Hx Schizophrenia: No - Patient Surgical History Past Surgical History: Yes Hx Neurologic Surgery: Yes (lumbar +cervical ) Hx Cataract Extraction: No Hx Cardiac Surgery: No Hx Lung Surgery: No Hx Breast Surgery: No Hx Breast Biopsy: No Hx Abdominal Surgery: No Hx Appendectomy: No Hx Cholecystectomy: No Hx Genitourinary Surgery: No Hx Orthopedic Surgery: Yes (herniated disk, back and neck) Anesthesia Reaction: No - PPD History Date: 05/19/17 Results: 0 mm - Smoking Cessation Smoking history: Current every day smoker Have you smoked in the past 12 months: Yes Aproximately how many cigarettes per day: 4 Cigars Per Day: 0 Hx Chewing Tobacco Use: No Initiated information on smoking cessation: Yes 'Breaking Loose' booklet given: 09/27/18 - Substances abused Alprazolam (Xanax) Frequency: Daily Amount used: 1gram Age of first use: 30 Date of last use: 09/27/18 Heroin Substance route: Inhalation Frequency: Daily Amount used: 4bags Age of first use: 30 Date of last use: 09/27/18 Alcohol Substance route: Oral Frequency: Daily Amount used: 4 16oz beers/day Age of first use: 17 Date of last use: 09/26/18 Admission Physical Exam BHS - Vital Signs Vital Signs: Vital Signs - 24 hr 09/27/18 09/27/18 18:28 19:53 Temperature 97.8 F 97.8 F Pulse Rate 101 H 101 H Respiratory 18 18 Rate Blood Pressure 130/84 130/84 - Physical General Appearance: Yes: Disheveled, Irritable, Anxious HEENTM: Yes: Within Normal Limits, EOMI, Normocephalic Respiratory: Yes: Within Normal Limits, Chest Non-Tender, Lungs Clear, Normal Breath Sounds Neck: Yes: Within Normal Limits, No masses,lesions,Nodules Breast: Yes: Breast Exam Deferred Cardiology: Yes: Within Normal Limits, Regular Rhythm, Regular Rate Abdominal: Yes: Within Normal Limits, Normal Bowel Sounds, Non Tender Genitourinary: Yes: Within Normal Limits Back: Yes: Within Normal Limits, Normal Inspection Musculoskeletal: Yes: Within Normal Limits, full range of Motion, Gait Steady, Pelvis Stable Extremities: Yes: Within Normal Limits, Normal Capillary Refill, Normal Inspection, Normal Range of Motion Neurological: Yes: Within Normal Limits, mend worker II-XII NML intact, Fully Oriented, Motor Strength 5/5 Integumentary: Yes: Within Normal Limits Lymphatic: Yes: Within Normal Limits - Diagnostic (1) Cannabis dependence, uncomplicated Current Visit: No Status: Acute (2) History of back surgery Current Visit: No Status: Acute (3) Opioid dependence with withdrawal Current Visit: Yes Status: Acute (4) Sedative, hypnotic or anxiolytic dependence with withdrawal, uncomplicated Current Visit: Yes Status: Acute (5) Uncomplicated sedative, hypnotic or anxiolytic withdrawal Current Visit: Yes Status: Acute Cleared for Admission S - Detox or Rehab [facility] Level of Care: Medically Supervised Breathalyzer - Breathalyzer Breathalyzer: 0 Urine Drug Screen - Test Device Lot number: [id number] Expiration date: 07/10/20 - Control Is test valid?: Yes - Results Drug screen NEGATIVE: No Urine drug screen results: THC-Marijuana, MET-Methamphetamine, FEN-Fentanyl, MOP -Opiates, OXY-Oxycodone, BZO-Benzodiazepines Inpatient Rehab Admission - Rehab Decision to Admit Inpatient rehab admission?: No
[2018-09-27] MEDS ORDERED: MAGNESIUM CITRATE 300 ML BOTTLE PO PRN (20:55)
[2018-09-27] MEDS ORDERED: cloNIDine HCL 0.1 MG TABLET PO PRN (20:55)
[2018-09-27] MEDS ORDERED: MAGNESIUM HYDROX 2400MG/30ML ORAL SUSPENSION 30 ML CUP PO PRN (20:55)
[2018-09-27] MEDS ORDERED: METHADONE HCL 10 MG TABLET (FOR DETOX USE ONLY) PO ONE (20:55)
[2018-09-27] MEDS ORDERED: MELATONIN 5 MG TABLETS PO PRN (20:55)
[2018-09-27] MEDS ORDERED: MAG HYDROX/AL HYDROX/SIMETH 30 ML UNIT-DOSE CUP PO PRN (20:55)
[2018-09-27] MEDS ORDERED: hydrOXYzine HCL 25 MG TABLET (FP) PO PRN (20:55)
[2018-09-27] MEDS ORDERED: BISMUTH SUBSALICYLATE 524 MG/30 ML UD PO PRN (20:55)
[2018-09-27] MEDS ORDERED: MENTHOL/PHENOL 1 EACH UD MM PRN (20:55)
[2018-09-27] MEDS ORDERED: IBUPROFEN 400 MG TABLET (FP) PO PRN (20:55)
[2018-09-27] MEDS ORDERED: ACETAMINOPHEN 325 MG TABLET (FP) PO PRN ×2 (20:55)
[2018-09-27] MEDS ORDERED: METHOCARBAMOL 500 MG TABLET PO PRN (20:55)
[2018-09-27] MEDS ORDERED: THIAMINE HCL 100 MG TABLET (FP) PO SCH (22:00)
[2018-09-27] MEDS: diazePAM 5 MG TABLET PO SCH (22:47)
[2018-09-28] MEDS: diazePAM 5 MG TABLET PO SCH ×2 (05:24→13:36)
[2018-09-28] MEDS ORDERED: METHADONE HCL 5 MG TABLET (FOR DETOX USE ONLY) PO ONE (10:00)
[2018-09-28] MEDS ORDERED: PRENATAL VITAMINS W/ FOLIC ACID TABLET (FP) PO SCH (10:00)
[2018-09-28] MEDS: diazePAM 5 MG TABLET PO PRN ×2 (10:30→17:54)
[2018-09-28 12:23] LABS: HEMATOCRIT 39.2 % (35.4-49); HEMOGLOBIN 13.3 GM/dL (11.7-16.9); MCH 28.2 pg (25.7-33.7); MCHC 33.9 g/dl (32.0-35.9); MEAN CELL VOLUME 83.3 fl (80-96); MEAN PLT VOLUME 9.4 fl (7.5-11.1); PLATELET COUNT 279 K/MM3 (134-434); RBC 4.71 M/mm3 (4.00-5.60); RDW 14.1 % (11.9-15.9); WHITE BLOOD COUNT 6.6 K/mm3 (4.0-10.0)
[2018-09-28 12:25] LABS: ALBUMIN 3.6 g/dl (3.4-5.0); BILIRUBIN,TOTAL 0.4 mg/dL (0.2-1); BLOOD UREA NITROGEN 12.5 mg/dL (7-18); CALCIUM 8.7 mg/dL (8.5-10.1); CREATININE 0.8 mg/dL (0.55-1.3); POTASSIUM 4.5 mmol/L (3.5-5.1); TOT PROT 6.5 g/dl (6.4-8.2)
--- NOTE | 2018-09-28 16:11 | PN ---
S CIWA - CIWA Score Nausea/Vomitin-No Nausea/No Vomiting Muscle Tremors: 3 Anxiety: 3 Agitation: 1-Slight > Activity Paroxysmal Sweats: 3 Orientation: 0-Oriented Tacttile Disturbances: 0-None Auditory Disturbances: 1-Very Mild Visual Disturbances: 1-Very Mild Sensitivity Headache: 0-None Present CIWA-Ar Total Score: 12 BHS COWS - Scale Resting Pulse: 1= [place] 81-100 Sweatin= Chills/Flushing Restless Observation: 1= Difficult to Sit Still Pupil Size: 0= Normal to Room Light Bone or Joint Aches: 0= None Runny Nose/ Eye Tearin= None GI Upset > 30mins: 1= Stomach Cramp Tremor Observation of Outstretched Hands: 2= Slight Tremor Visible Yawning Observation: 1= 1-2x During Session Anxiety or Irritability: 2=Irritable/Anxious Goose Flesh Skin: 3=Piloerection COWS Score: 12 S Progress Note (SOAP) Subjective: Stomach Cramping, Sweating, Tremors. Objective: PATIENT A & O X 3. IN NO ACUTE DISTRESS. 09/28/18 16:10 Vital Signs Temperature 98.4 F 09/28/18 13:55 Pulse Rate 86 09/28/18 13:55 Respiratory Rate 18 09/28/18 13:55 Blood Pressure 129/78 09/28/18 13:55 O2 Sat by Pulse Oximetry (%) Laboratory Tests 09/28/18 09/28/18 07:00 07:00 WBC 6.6 RBC 4.71 Hgb 13.3 Hct 39.2 MCV 83.3 MCH 28.2 MCHC 33.9 RDW 14.1 Plt Count 279 MPV 9.4 D Sodium 139 Potassium 4.5 Chloride 105 Carbon Dioxide 29 Anion Gap 5 L BUN 12.5 Creatinine 0.8 Est GFR (CKD-EPI)AfAm 136.03 Est GFR (CKD-EPI)NonAf 117.37 Random Glucose 96 Calcium 8.7 Total Bilirubin 0.4 AST 22 ALT 38 Alkaline Phosphatase 99 Total Protein 6.5 Albumin 3.6 LABS NOTED. RPR RESULT PENDING. 09/28/18 16:10 Assessment: 09/28/18 16:10 WITHDRAWAL SYMPTOMS. Plan: CONTINUE DETOX.
[2018-09-28 18:17] VITALS: BP 111/72; PULSE 72; TEMP 97.7
--- NOTE | 2018-09-28 21:15 | DS ---
[facility] Detox Discharge Summary Admission Date: 09/27/18 Discharge Date: 09/28/18 - History Present History: Alcohol Dependence, Cannabis Dependence, Opioid Dependence, Sedative Dependence Pertinent Past History: Patient presented w/ hx alcohol, benzo, and opioid, use disorder in withdrawal. - Physical Exam Results Vital Signs: Vital Signs Temperature 97.7 F 09/28/18 18:00 Pulse Rate 72 09/28/18 18:00 Respiratory Rate 16 09/28/18 18:00 Blood Pressure 111/72 09/28/18 18:00 O2 Sat by Pulse Oximetry (%) Pertinent Admission Physical Exam Findings: Patient w/ hx alcohol, benzo, opioid, marijuana substance use disorder in withdrawal and requesting detox. History back surgery otherwise denies significant PMH. Elevated CIWA and COWS support detox admission. L Laboratory Last Values WBC 6.6 K/mm3 (4.0-10.0) 09/28/18 07:00 RBC 4.71 M/mm3 (4.00-5.60) 09/28/18 07:00 Hgb 13.3 GM/dL (11.7-16.9) 09/28/18 07:00 Hct 39.2 % (35.4-49) 09/28/18 07:00 MCV 83.3 fl (80-96) 09/28/18 07:00 MCH 28.2 pg (25.7-33.7) 09/28/18 07:00 MCHC 33.9 g/dl (32.0-35.9) 09/28/18 07:00 RDW 14.1 % (11.9-15.9) 09/28/18 07:00 Plt Count 279 K/MM3 (134-434) 09/28/18 07:00 MPV 9.4 fl (7.5-11.1) D 09/28/18 07:00 Sodium 139 mmol/L (136-145) 09/28/18 07:00 Potassium 4.5 mmol/L (3.5-5.1) 09/28/18 07:00 Chloride 105 mmol/L (98-107) 09/28/18 07:00 Carbon Dioxide 29 mmol/L (21-32) 09/28/18 07:00 Anion Gap 5 MMOL/L (8-16) L 09/28/18 07:00 BUN 12.5 mg/dL (7-18) 09/28/18 07:00 Creatinine 0.8 mg/dL (0.55-1.3) 09/28/18 07:00 Est GFR (CKD-EPI)AfAm 136.03 09/28/18 07:00 Est GFR (CKD-EPI)NonAf 117.37 09/28/18 07:00 Random Glucose 96 mg/dL (74-106) 09/28/18 07:00 Calcium 8.7 mg/dL (8.5-10.1) 09/28/18 07:00 Total Bilirubin 0.4 mg/dL (0.2-1) 09/28/18 07:00 AST 22 U/L (15-37) 09/28/18 07:00 ALT 38 U/L (13-61) 09/28/18 07:00 Alkaline Phosphatase 99 U/L (45-117) 09/28/18 07:00 Total Protein 6.5 g/dl (6.4-8.2) 09/28/18 07:00 Albumin 3.6 g/dl (3.4-5.0) 09/28/18 07:00 Labs reviewed. - Treatment Hospital Course: Detox Protocol Followed (Patient left before completion of detox protocol and refused any supportive outpatient referrals. Patient refused Narcan kit.) - Medication Discharge Medications: Ambulatory Orders NK [No Known Home Medication] 10/14/16 - Diagnosis (1) Cannabis dependence, uncomplicated Status: Chronic (2) History of back surgery Status: Resolved (3) Low back pain Status: Chronic Qualifiers: Chronicity: chronic Back pain laterality: unspecified Sciatica presence: unspecified whether sciatica present Qualified Code(s): M54.5 - Low back pain ; G89.29 - Other chronic pain (4) Nicotine dependence Status: Chronic Qualifiers: Nicotine product type: cigarettes Substance use status: in withdrawal Qualified Code(s): F17.213 - Nicotine dependence, cigarettes, with withdrawal (5) Opioid dependence with withdrawal Status: Acute (6) Sedative, hypnotic or anxiolytic dependence with withdrawal, uncomplicated Status: Acute - AMA Did Patient Leave Against Medical Advice: Yes (Patient left despite encouragement to stay. )
--- NOTE | 2018-09-28 21:16 | PN ---
[facility] Progress Note Note: Patient states leaving and refuses to wait to be seen by this Provider. Patient states has no home medications and refuses a script for Narcan. Overdose risks reinforced by nurses. Patient left unit AMA.
[2018-09-29] MEDS ORDERED: diazePAM 5 MG TABLET PO SCH (06:00)
[2018-09-29] MEDS ORDERED: METHADONE HCL 10 MG TABLET (FOR DETOX USE ONLY) PO ONE (10:00)
[2018-09-30] MEDS ORDERED: diazePAM 5 MG TABLET PO ONE (06:00)
[2018-09-30] MEDS ORDERED: METHADONE HCL 5 MG TABLET (FOR DETOX USE ONLY) PO ONE (06:00)
== END 2018-09-28 18:50 | disposition left against medical advice (07) | DRG 770 ==
LOC: YASAS 17:10 → Y3N 21:08
PROVIDERS: ADMIT Surgery; ATTEND Surgery
PROC: HZ2ZZZZ Detoxification Services for Substance Abuse Treatment (ICD-10-PCS; principal; 2018-09-27)
DX: F11.23 Opioid dependence with withdrawal (principal); F13.230 Sedative, hypnotic or anxiolytic dependence with withdrawal, uncomplicated; F12.20 Cannabis dependence, uncomplicated; F17.213 Nicotine dependence, cigarettes, with withdrawal; M54.5 Low back pain; G89.29 Other chronic pain
CPT/HCPCS: 36415; 80053; 85027; 86593

== ENCOUNTER 2019-02-13 13:26 | Inpatient (IN) | payer OTHER ==
[2019-02-13 15:05] VITALS: BMI 33.8
--- NOTE | 2019-02-13 16:15 | HP ---
"COWS - Scale Resting Pulse: 1= [place] 81-100 Sweatin= Chills/Flushing Restless Observation: 3= Extraneous Movement Pupil Size: 0= Normal to Room Light Bone or Joint Aches: 2= Severe Diffuse Aches Runny Nose/ Eye Tearin= None GI Upset > 30mins: 2= Nausea/Diarrhea Tremor Observation: 0= None Yawning Observation: 0= None Anxiety or Irritability: 1=Feels Anxious/Irritable Goose Flesh Skin: 0=Smooth Skin COWS Score: 10 CIWA Score Nausea/Vomitin-Mild Nausea/No Vomiting Muscle Tremors: None Anxiety: 1-Mildly Anxious Agitation: 0-Normal Activity Paroxysmal Sweats: 1-Minimal Palms Moist Orientation: 0-Oriented Tacttile Disturbances: 0-None Auditory Disturbances: 0-None Visual Disturbances: 0-None Headache: 2-Mild CIWA-Ar Total Score: 5 - Admission Criteria OASAS Guidelines: Admission for Medically Managed Detox: Requires at least one of the followin. CIWA greater than 12 2. Seizures within the past 24 hours 3. Delirium tremens within the past 24 hours 4. Hallucinations within the past 24 hours 5. Acute intervention needed for co occurring medical disorder 6. Acute intervention needed for co occurring psychiatric disorder 7. Severe withdrawal that cannot be handled at a lower level of care (continued vomiting, continued diarrhea, abnormal vital signs) requiring intravenous medication and/or fluids 8. Admitting History and Physical - Smoking History Smoking history: Current every day smoker Have you smoked in the past 12 months: Yes Aproximately how many cigarettes per day: 4 - Alcohol/Substance Use Hx Alcohol Use: No Admission [facility] Allergies/Adverse Reactions: Allergies Allergy/AdvReac Type Severity Reaction Status Date / Time No Known Allergies Allergy Verified 02/13/19 15:00 History of Present Illness: This report was requested by: Tessa Gr | Reference #: [id number] Others' Prescriptions Patient Name: Paolo Hammond Date: 1985 Address: [address] [place] [address] Sex: Male Rx Written Rx Dispensed Drug Quantity Days Supply Prescriber Name 11/01/2018 11/01/2018 alprazolam 0.25 mg tablet 30 30 Aryan Bean MD 11/01/2018 11/01/2018 oxycodone-acetaminophen 5-325 mg tablet 28 7 Aryan Bean MD patient here requesting detox from heroin and xanax use , heroin use : 2 yrs ago , rx Percocet spine surgery (2014,2015) , denies iv , current use 12 bags/day , latest use 12 noon xanax : 1/2 mg /day x 1 1 /2 yrs denies w/d seizures , blackouts denies OD fentanyl - denies use etoh - 2-3 beers on weekends psych : denies meds : denies allergies : denies Exam Limitations: Clinical Condition - Ebola screening Have you traveled outside of the country in the last 21 days: No Have you had contact with anyone from an Ebola affected area: No Do you have a fever: No - Review of Systems Constitutional: No Symptoms Reported EENT: reports: No Symptoms Reported Respiratory: reports: No Symptoms reported Cardiac: reports: No Symptoms Reported GI: reports: See HPI, Constipated, Nausea : reports: No Symptoms Reported Musculoskeletal: reports: No Symptoms Reported Integumentary: reports: No Symptoms Reported Neuro: reports: Headache Endocrine: reports: No Symptoms Reported Psychiatric: reports: Orientated x3 Patient History - Patient Medical History Hx Anemia: No Hx Asthma: No Hx Chronic Obstructive Pulmonary Disease (COPD): No Hx Cancer: No Hx Cardiac Disorders: No Hx Congestive Heart Failure: No Hx Hypertension: No Hx Hypercholesterolemia: No Hx Pacemaker: No HX Cerebrovascular Accident: No Hx Seizures: No Hx Dementia: No Hx Diabetes: No Hx Gastrointestinal Disorders: No Hx Liver Disease: No Hx Genitourinary Disorders: No Hx Sexually Transmitted Disorders: No Hx Renal Disease (ESRD): No Hx Thyroid Disease: No Hx Human Immunodeficiency Virus (HIV): No (last 2017 negative) Hx Hepatitis C: No Hx Depression: No Hx Suicide Attempt: No Hx Bipolar Disorder: No Hx Schizophrenia: No - Patient Surgical History Past Surgical History: Yes Hx Neurologic Surgery: Yes (lumbar +cervical 2014) Hx Cataract Extraction: No Hx Cardiac Surgery: No Hx Lung Surgery: No Hx Breast Surgery: No Hx Breast Biopsy: No Hx Abdominal Surgery: No Hx Appendectomy: No Hx Cholecystectomy: No Hx Genitourinary Surgery: No Hx Orthopedic Surgery: Yes (herniated disk, back and neck) Anesthesia Reaction: No - PPD History Date: 05/19/17 Results: 0 mm - Smoking Cessation Smoking history: Former smoker Have you smoked in the past 12 months: Yes Aproximately how many cigarettes per day: 4 Cigars Per Day: 0 Hx Chewing Tobacco Use: No Initiated information on smoking cessation: No - Substances abused Alprazolam (Xanax) Substance route: Oral Frequency: Daily Amount used: 0.5 mg Age of first use: 30 Date of last use: 02/13/19 Heroin Substance route: Inhalation Frequency: Daily Amount used: 10-12 bags Age of first use: 30 Date of last use: 02/13/19 Alcohol Substance route: Oral Frequency: 1-2 times per week Amount used: 1 bottle tequila Age of first use: 17 Date of last use: 02/10/19 Admission Physical Exam S - Vital Signs Vital Signs: Vital Signs - 24 hr 02/13/19 15:02 Temperature 98.0 F Pulse Rate 93 H Respiratory 20 Rate Blood Pressure 147/96 - Physical General Appearance: Yes: Mild Distress HEENTM: Yes: EOMI, Hearing grossly Normal, Normocephalic, Normal Voice Respiratory: Yes: Lungs Clear, Normal Breath Sounds, No Respiratory Distress, No Accessory Muscle Use Neck: Yes: No masses,lesions,Nodules, Trachea in good position Cardiology: Yes: Regular Rhythm, Regular Rate, S1, S2, Tachycardia Abdominal: Yes: Non Tender, Soft Musculoskeletal: Yes: Gait Steady Extremities: Yes: Normal Range of Motion, Non-Tender Neurological: Yes: Fully Oriented, Alert, Motor Strength 5/5 Integumentary: Yes: Warm - Diagnostic (1) Opioid dependence with withdrawal Current Visit: Yes Status: Chronic (2) Sedative, hypnotic or anxiolytic dependence with withdrawal, uncomplicated Current Visit: Yes Status: Chronic Breathalyzer - Breathalyzer Breathalyzer: 0 Urine Drug Screen - Test Device Lot number: [id number] Expiration date: 10/10/20 - Control Is test valid?: Yes - Results Drug screen NEGATIVE: No Urine drug screen results: FEN-Fentanyl, MOP-Opiates, BZO-Benzodiazepines Inpatient Rehab Admission - Rehab Decision to Admit Inpatient rehab admission?: No"
[2019-02-13] MEDS ORDERED: MENTHOL/PHENOL 1 EACH UD MM PRN (16:32)
[2019-02-13] MEDS ORDERED: MAG HYDROX/AL HYDROX/SIMETH 30 ML UNIT-DOSE CUP PO PRN (16:32)
[2019-02-13] MEDS ORDERED: MELATONIN 5 MG TABLETS PO PRN (16:32)
[2019-02-13] MEDS ORDERED: IBUPROFEN 400 MG TABLET (FP) PO PRN (16:32)
[2019-02-13] MEDS ORDERED: BISMUTH SUBSALICYLATE 524 MG/30 ML UD PO PRN (16:32)
[2019-02-13] MEDS ORDERED: MAGNESIUM HYDROX 2400MG/30ML ORAL SUSPENSION 30 ML CUP PO PRN (16:32)
[2019-02-13] MEDS ORDERED: ACETAMINOPHEN 325 MG TABLET (FP) PO PRN ×2 (16:32)
[2019-02-13] MEDS ORDERED: MAGNESIUM CITRATE 300 ML BOTTLE PO PRN (16:32)
[2019-02-13] MEDS ORDERED: hydrOXYzine PAMOATE 25 MG CAPSULE (FP) PO PRN (16:32)
[2019-02-13] MEDS ORDERED: METHOCARBAMOL 500 MG TABLET PO PRN (16:32)
[2019-02-13] MEDS ORDERED: cloNIDine HCL 0.1 MG TABLET PO PRN (16:33)
[2019-02-13] MEDS ORDERED: METHADONE HCL 10 MG TABLET (FOR DETOX USE ONLY) PO ONE (16:33)
[2019-02-13] MEDS: diazePAM 5 MG TABLET PO SCH (21:39)
[2019-02-13] MEDS: THIAMINE HCL 100 MG TABLET (FP) PO SCH (21:41)
[2019-02-14] MEDS: diazePAM 5 MG TABLET PO SCH ×3 (05:16→22:13)
[2019-02-14 09:45] LABS: HEMATOCRIT 39.3 % (35.4-49); MCH 27.8 pg (25.7-33.7); MCHC 33.1 g/dl (32.0-35.9); MEAN CELL VOLUME 83.9 fl (80-96); MEAN PLT VOLUME 9.2 fl (7.5-11.1); PLATELET COUNT 294 K/MM3 (134-434); RBC 4.68 M/mm3 (4.00-5.60); RDW 14.9 % (11.9-15.9)
[2019-02-14] MEDS ORDERED: METHADONE HCL 5 MG TABLET (FOR DETOX USE ONLY) PO ONE (10:00)
[2019-02-14] MEDS: PRENATAL VITAMINS W/ FOLIC ACID TABLET (FP) PO SCH (10:10)
[2019-02-14 10:15] LABS: ALBUMIN 3.4 g/dl (3.4-5.0); BILIRUBIN,TOTAL 0.4 mg/dL (0.2-1); BLOOD UREA NITROGEN 12.5 mg/dL (7-18); CALCIUM 9.1 mg/dL (8.5-10.1); CREATININE 0.8 mg/dL (0.55-1.3); POTASSIUM 4.2 mmol/L (3.5-5.1); TOT PROT 6.5 g/dl (6.4-8.2)
--- NOTE | 2019-02-14 11:53 | PN ---
S CIWA - CIWA Score Nausea/Vomitin-Mild Nausea/No Vomiting Muscle Tremors: 4-Moderate,w/Arms Extend Anxiety: 3 Agitation: 2 Paroxysmal Sweats: 2 Orientation: 0-Oriented Tacttile Disturbances: 1-Very Mild Itch/Numbness Auditory Disturbances: 0-None Visual Disturbances: 0-None Headache: 0-None Present CIWA-Ar Total Score: 13 BHS COWS - Scale Resting Pulse: 0= [place] 80 or Below Sweatin= Chills/Flushing Restless Observation: 0= Sits Still Pupil Size: 1= Pupils >than Normal Bone or Joint Aches: 1= Mild Discomfort Runny Nose/ Eye Tearin= None GI Upset > 30mins: 2= Nausea/Diarrhea Tremor Observation of Outstretched Hands: 1= Tremor [place], Not Seen Yawning Observation: 0= None Anxiety or Irritability: 1=Feels Anxious/Irritable Goose Flesh Skin: 3=Piloerection COWS Score: 10 BHS Progress Note (SOAP) Subjective: 33 years old male admitted on 02/13/19 for alcohol benzo opiate withdrawal sx management treated with valium and methadone detox regimen ate breakfast feeling tired resting on bed discuss medication assisted treatment program 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 Objective: 02/14/19 11:52 Vital Signs Temperature 96.6 F L 02/14/19 09:09 Pulse Rate 68 02/14/19 09:09 Respiratory Rate 18 02/14/19 09:09 Blood Pressure 122/68 02/14/19 09:09 O2 Sat by Pulse Oximetry (%) Laboratory Last Values WBC 6.0 K/mm3 (4.0-10.0) 02/14/19 08:00 RBC 4.68 M/mm3 (4.00-5.60) 02/14/19 08:00 Hgb 13.0 GM/dL (11.7-16.9) 02/14/19 08:00 Hct 39.3 % (35.4-49) 02/14/19 08:00 MCV 83.9 fl (80-96) 02/14/19 08:00 MCH 27.8 pg (25.7-33.7) 02/14/19 08:00 MCHC 33.1 g/dl (32.0-35.9) 02/14/19 08:00 RDW 14.9 % (11.9-15.9) 02/14/19 08:00 Plt Count 294 K/MM3 (134-434) 02/14/19 08:00 MPV 9.2 fl (7.5-11.1) 02/14/19 08:00 Sodium 141 mmol/L (136-145) 02/14/19 08:00 Potassium 4.2 mmol/L (3.5-5.1) 02/14/19 08:00 Chloride 107 mmol/L (98-107) 02/14/19 08:00 Carbon Dioxide 28 mmol/L (21-32) 02/14/19 08:00 Anion Gap 7 MMOL/L (8-16) L 02/14/19 08:00 BUN 12.5 mg/dL (7-18) 02/14/19 08:00 Creatinine 0.8 mg/dL (0.55-1.3) 02/14/19 08:00 Est GFR (CKD-EPI)AfAm 136.03 02/14/19 08:00 Est GFR (CKD-EPI)NonAf 117.37 02/14/19 08:00 Random Glucose 93 mg/dL (74-106) 02/14/19 08:00 Calcium 9.1 mg/dL (8.5-10.1) 02/14/19 08:00 Total Bilirubin 0.4 mg/dL (0.2-1) 02/14/19 08:00 AST 16 U/L (15-37) 02/14/19 08:00 ALT 29 U/L (13-61) 02/14/19 08:00 Alkaline Phosphatase 100 U/L (45-117) 02/14/19 08:00 Total Protein 6.5 g/dl (6.4-8.2) 02/14/19 08:00 Albumin 3.4 g/dl (3.4-5.0) 02/14/19 08:00 RPR Titer Nonreactive (NONREACTIVE) 02/14/19 08:00 lab noted Assessment: 02/14/19 11:53 alcohol benzo opiate withdrawal sx Plan: valium and methadone detox regimen
[2019-02-14] MEDS: diazePAM 5 MG TABLET PO PRN (17:40)
[2019-02-14] MEDS: THIAMINE HCL 100 MG TABLET (FP) PO SCH (22:14)
[2019-02-15] MEDS: diazePAM 5 MG TABLET PO PRN ×2 (02:38→10:08)
[2019-02-15] MEDS ORDERED: diazePAM 5 MG TABLET PO SCH (06:00)
[2019-02-15] MEDS ORDERED: METHADONE HCL 10 MG TABLET (FOR DETOX USE ONLY) PO ONE (10:00)
[2019-02-15] MEDS: PRENATAL VITAMINS W/ FOLIC ACID TABLET (FP) PO SCH (10:08)
--- NOTE | 2019-02-15 10:43 | PN ---
[facility] CIWA - CIWA Score Nausea/Vomitin-Mild Nausea/No Vomiting Muscle Tremors: 2 Anxiety: 2 Agitation: 2 Paroxysmal Sweats: No Perspiration Orientation: 0-Oriented Tacttile Disturbances: 1-Very Mild Itch/Numbness Auditory Disturbances: 0-None Visual Disturbances: 0-None Headache: 1-Very Mild CIWA-Ar Total Score: 9 BHS COWS - Scale Resting Pulse: 0= [place] 80 or Below Sweatin= No chills or Flushing Restless Observation: 1= Difficult to Sit Still Pupil Size: 1= Pupils >than Normal Bone or Joint Aches: 1= Mild Discomfort Runny Nose/ Eye Tearin= Nasal Congestion GI Upset > 30mins: 1= Stomach Cramp Tremor Observation of Outstretched Hands: 1= Tremor [place], Not Seen Yawning Observation: 0= None Anxiety or Irritability: 2=Irritable/Anxious Goose Flesh Skin: 0=Smooth Skin COWS Score: 8 BHS Progress Note (SOAP) Subjective: alert,irritable,anxious,interrupted sleep,pain in the body Objective: 02/15/19 10:42 Vital Signs Temperature 96.8 F L 02/15/19 09:15 Pulse Rate 77 02/15/19 09:15 Respiratory Rate 18 02/15/19 09:15 Blood Pressure 96/60 02/15/19 09:15 O2 Sat by Pulse Oximetry (%) Laboratory Last Values WBC 6.0 K/mm3 (4.0-10.0) 02/14/19 08:00 RBC 4.68 M/mm3 (4.00-5.60) 02/14/19 08:00 Hgb 13.0 GM/dL (11.7-16.9) 02/14/19 08:00 Hct 39.3 % (35.4-49) 02/14/19 08:00 MCV 83.9 fl (80-96) 02/14/19 08:00 MCH 27.8 pg (25.7-33.7) 02/14/19 08:00 MCHC 33.1 g/dl (32.0-35.9) 02/14/19 08:00 RDW 14.9 % (11.9-15.9) 02/14/19 08:00 Plt Count 294 K/MM3 (134-434) 02/14/19 08:00 MPV 9.2 fl (7.5-11.1) 02/14/19 08:00 Sodium 141 mmol/L (136-145) 02/14/19 08:00 Potassium 4.2 mmol/L (3.5-5.1) 02/14/19 08:00 Chloride 107 mmol/L (98-107) 02/14/19 08:00 Carbon Dioxide 28 mmol/L (21-32) 02/14/19 08:00 Anion Gap 7 MMOL/L (8-16) L 02/14/19 08:00 BUN 12.5 mg/dL (7-18) 02/14/19 08:00 Creatinine 0.8 mg/dL (0.55-1.3) 02/14/19 08:00 Est GFR (CKD-EPI)AfAm 136.03 02/14/19 08:00 Est GFR (CKD-EPI)NonAf 117.37 02/14/19 08:00 Random Glucose 93 mg/dL (74-106) 02/14/19 08:00 Calcium 9.1 mg/dL (8.5-10.1) 02/14/19 08:00 Total Bilirubin 0.4 mg/dL (0.2-1) 02/14/19 08:00 AST 16 U/L (15-37) 02/14/19 08:00 ALT 29 U/L (13-61) 02/14/19 08:00 Alkaline Phosphatase 100 U/L (45-117) 02/14/19 08:00 Total Protein 6.5 g/dl (6.4-8.2) 02/14/19 08:00 Albumin 3.4 g/dl (3.4-5.0) 02/14/19 08:00 RPR Titer Nonreactive (NONREACTIVE) 02/14/19 08:00 Assessment: 02/15/19 10:43 withdrawal symptom Plan: continue detox methadone and valium regimen,discharge in am
--- NOTE | 2019-02-15 14:09 | PN ---
[facility] Progress Note Note: patient did not want to complete treatment,all attempts to convince patient to stay with no avail,high risks of relapsing explained,understood, patient signed release ama,adive to call 911 if not feeling well
--- NOTE | 2019-02-15 14:13 | DS ---
[facility] Detox Discharge Summary Admission Date: 02/13/19 Discharge Date: 02/15/19 - History Present History: Alcohol Dependence, Opioid Dependence Additional Comments: patient signed release ama - Physical Exam Results Vital Signs: Vital Signs Temperature 96.8 F L 02/15/19 09:15 Pulse Rate 77 02/15/19 09:15 Respiratory Rate 18 02/15/19 09:15 Blood Pressure 96/60 02/15/19 09:15 O2 Sat by Pulse Oximetry (%) Pertinent Admission Physical Exam Findings: withdrawal signs and symptom Vital Signs Temperature 96.8 F L 02/15/19 09:15 Pulse Rate 77 02/15/19 09:15 Respiratory Rate 18 02/15/19 09:15 Blood Pressure 96/60 02/15/19 09:15 O2 Sat by Pulse Oximetry (%) Laboratory Last Values WBC 6.0 K/mm3 (4.0-10.0) 02/14/19 08:00 RBC 4.68 M/mm3 (4.00-5.60) 02/14/19 08:00 Hgb 13.0 GM/dL (11.7-16.9) 02/14/19 08:00 Hct 39.3 % (35.4-49) 02/14/19 08:00 MCV 83.9 fl (80-96) 02/14/19 08:00 MCH 27.8 pg (25.7-33.7) 02/14/19 08:00 MCHC 33.1 g/dl (32.0-35.9) 02/14/19 08:00 RDW 14.9 % (11.9-15.9) 02/14/19 08:00 Plt Count 294 K/MM3 (134-434) 02/14/19 08:00 MPV 9.2 fl (7.5-11.1) 02/14/19 08:00 Sodium 141 mmol/L (136-145) 02/14/19 08:00 Potassium 4.2 mmol/L (3.5-5.1) 02/14/19 08:00 Chloride 107 mmol/L (98-107) 02/14/19 08:00 Carbon Dioxide 28 mmol/L (21-32) 02/14/19 08:00 Anion Gap 7 MMOL/L (8-16) L 02/14/19 08:00 BUN 12.5 mg/dL (7-18) 02/14/19 08:00 Creatinine 0.8 mg/dL (0.55-1.3) 02/14/19 08:00 Est GFR (CKD-EPI)AfAm 136.03 02/14/19 08:00 Est GFR (CKD-EPI)NonAf 117.37 02/14/19 08:00 Random Glucose 93 mg/dL (74-106) 02/14/19 08:00 Calcium 9.1 mg/dL (8.5-10.1) 02/14/19 08:00 Total Bilirubin 0.4 mg/dL (0.2-1) 02/14/19 08:00 AST 16 U/L (15-37) 02/14/19 08:00 ALT 29 U/L (13-61) 02/14/19 08:00 Alkaline Phosphatase 100 U/L (45-117) 02/14/19 08:00 Total Protein 6.5 g/dl (6.4-8.2) 02/14/19 08:00 Albumin 3.4 g/dl (3.4-5.0) 02/14/19 08:00 RPR Titer Nonreactive (NONREACTIVE) 02/14/19 08:00 - Medication Discharge Medications: Ambulatory Orders Naloxone HCl [Narcan] 4 mg NS ASDIR PRN #1 spray 02/14/19 - Diagnosis (1) Opioid dependence with withdrawal Current Visit: Yes Status: Chronic (2) Sedative, hypnotic or anxiolytic dependence with withdrawal, uncomplicated Current Visit: Yes Status: Chronic (3) History of neck surgery Current Visit: No Status: Acute (4) Nicotine dependence Current Visit: No Status: Chronic Qualifiers: Nicotine product type: cigarettes Substance use status: in withdrawal Qualified Code(s): F17.213 - Nicotine dependence, cigarettes, with withdrawal - AMA Did Patient Leave Against Medical Advice: Yes
[2019-02-15 14:38] VITALS: BP 114/77; PULSE 81; TEMP 97.6
[2019-02-16] MEDS ORDERED: METHADONE HCL 5 MG TABLET (FOR DETOX USE ONLY) PO ONE (06:00)
[2019-02-16] MEDS ORDERED: diazePAM 5 MG TABLET PO ONE (06:00)
== END 2019-02-15 14:25 | disposition left against medical advice (07) | DRG 770 ==
LOC: YASAS 13:26 → Y3N 16:43 → UNDOADMIN 16:43 → Y3N 22:36
PROVIDERS: ADMIT Allergy & Immunology; ATTEND Allergy & Immunology
PROC: HZ2ZZZZ Detoxification Services for Substance Abuse Treatment (ICD-10-PCS; principal; 2019-02-13)
DX: F10.230 Alcohol dependence with withdrawal, uncomplicated (principal); F11.23 Opioid dependence with withdrawal; F13.230 Sedative, hypnotic or anxiolytic dependence with withdrawal, uncomplicated; F17.210 Nicotine dependence, cigarettes, uncomplicated; Z98.890 Other specified postprocedural states
CPT/HCPCS: 36415; 80053; 85027; 86593; J0735